=== PATIENT | female | born 1995 | race Hispanic/Latino ===

== ENCOUNTER 2021-12-23 20:29 | Emergency (ER) | payer OTHER, SELFPAY ==
[2021-12-23 20:30] VITALS: BP 136/90; PULSE 110; RESP 18; TEMP 36.6; O2SAT 98; BMI 30.2
--- NOTE | 2021-12-23 20:48 | ED.VIS.GI ---
HPI HPI - GI History of Present Illness Chief Complaint: Abd Pain Detail of Chief Complaint: Abdominal pain x3 days Informant: patient Narrative Narrative: Patient presents the emergency department complaint of abdominal pain for the last 3 days. Patient has had some mild nausea but no vomiting. She denies diarrhea. She denies blood in her stool or black tarry stool. Patient last menstrual period was the first week of November. She does not think she is . Patient tells me that in June of this year she had surgery to remove a dermoid cyst from her right ovary in [facility]. Patient states that pain feels similar to what she had at that time. Prior similar symptoms: Yes PFSH [facility] Medical History (Updated 12/23/21 @ 22:[address] Ventura Castaneda, DO) Ovarian cyst Ovarian teratoma Allergy/AdvReac Type Severity Reaction Status Date / Time No Known Allergies Allergy Verified 12/23/21 20:32 Social History Smoking Status: Never smoker ROS ROS ED Review of Systems ROS Unobtainable: other Constitutional Constitutional ED: Reports lethargy; Denies chills, fever(s), sweats or weight loss Eyes Eyes: Denies blurry vision, change in vision or diplopia ENT ENT ED: Denies rhinorrhea or sore throat Cardiovascular Cardiovascular: Denies chest pain, orthopnea or racing heartbeat Respiratory/Chest Respiratory/Chest: Denies cough, dyspnea, dyspnea on exertion, orthopnea or sputum Gastrointestinal Gastrointestinal: Reports abdominal pain and nausea; Denies diarrhea or vomiting Genitourinary Genitourinary ED: Denies dysuria, hematuria or urinary frequency Musculoskeletal Musculoskeletal: Denies arthralgias, back pain, myalgias or neck pain Integumentary Denies abscess, Abrasions or rash Neurologic Neurologic: Denies headache(s) or weakness Psychiatric Psychiatric: Denies anxiety, depression or suicidal thoughts Endocrine Endocrinology: Denies polydipsia, polyphagia or polyuria Hematologic/Lymphatic Hematologic/Lymphatic: Denies easy bleeding, easy bruising or lymphadenopathy Allergic/Immunologic Allergic/Immunologic ED: Denies mouth swelling, tongue swelling or urticaria EXAM Physical Exam Const Vital Signs: 12/23/21 20:30 12/23/21 22:30 Temperature 97.8 F Temperature Source Temporal Pulse Rate 110 H 68 Respiratory Rate 18 18 Blood Pressure 136/90 H Blood Pressure Mean 105 Pulse Ox 98 100 Oxygen Delivery Method Room Air Room Air Positive well nourished and well developed General Appearance ED: well developed and NAD HEENT Reports TM's clear and moist mucous membranes normocephalic and atraumatic; Negative for trauma or tenderness Tympanic Membrane ED: Yes TM's clear Eyes PERRL and EOMs intact bilaterally General Eye ED: Negative for pale conjunctiva or scleral icterus Neck no lymphadenopathy, supple and no JVD General: Negative for tenderness Chest Wall inspection of chest normal and palpation of chest normal Chest: Negative for tenderness Resp normal respiratory effort and clear to auscultation bilaterally Effort and Inspection: Negative for respiratory distress or pain with movement Auscultation: Negative for rhonchi, wheezes or diminished lung sounds Cardio regular rate, regular rhythm, S1 normal heart sound, S2 normal heart sound and no murmurs Peripheral Pulses: pulses 2+ throughout GI normal to inspection, nondistended, normoactive bowel sounds, soft to palpation, non-distended and no masses GI Narrative: Tenderness to right lower quadrant and suprapubic region with some mild guarding. There is no rebound, rigidity, or peritoneal signs. No masses palpated although exam somewhat limited due to patient body habitus. Back/Spine no CVA tenderness and no thoracic nor lumbar tenderness Extremity normal to inspection General Extremety ED: Negative for edema General Extremity: Negative for edema Neuro oriented x3, CN's II-XII intact bilaterally, no sensory deficits noted and gait normal Sensorium / Orientation: awake, alert, oriented to person, oriented to place and oriented to time Motor Exam: strength 5/5 throughout and strength abnormal Psych mental status grossly normal Skin no rashes or lesions noted and no wounds MDM MDM MDM Narrative Medical decision making narrative: IV line established on arrival. Patient did not want thing for pain. Blood work obtained was normal with a normal white count. Chemistries and LFTs were normal. Urinalysis was normal. hCG was negative. CT scan of the abdomen pelvis with IV and p.o. contrast interpreted by radiology as normal appendix and she did have small fluid about an irregularly shaped right ovary suspicious for ruptured ovarian cyst. On repeat evaluation patient is feeling well and does not want thing for pain. Patient will follow-up with her [employer] as she has an appointment on the 18th of next month. Patient advised to return if worsening pain, fever, vomiting, or condition worsen anyway. Lab Data Attestation: I reviewed the patient's lab results. Labs: Laboratory Results - last 24 hr 12/23/21 12/23/21 12/23/21 20:38 20:44 20:44 WBC 5.1 RBC 4.70 Hgb 14.2 Hct 41.9 MCV 89.1 MCH 30.2 MCHC 33.9 RDW Std Deviation 42.5 RDW Coeff of Karie 13.0 Plt Count 182 MPV 11.4 Immature Gran % (Auto) 0.200 Neut % (Auto) 47.4 Lymph % (Auto) 41.3 H [place] % (Auto) 9.9 Eos % (Auto) 0.6 Baso % (Auto) 0.6 Absolute Neuts (auto) 2.4 Absolute Lymphs (auto) 2.09 Nucleated RBC % 0 Sodium 139 Potassium 3.3 L Chloride 104 Carbon Dioxide 28.0 Anion Gap 7 BUN 12 Creatinine 0.93 Estim Creat Clear Calc 65.84 Est GFR (MDRD) Af Amer 94 Est GFR (MDRD) Non-Af 77 BUN/Creatinine Ratio 12.9 Glucose 99 Lactic Acid Calcium 9.6 Total Bilirubin 0.20 AST 36 ALT 52 Alkaline Phosphatase 67 Total Protein 8.4 H Albumin 4.0 Globulin 4.4 H Albumin/Globulin Ratio 0.9 Serum , Qual Urine Color Yellow Urine Clarity Clear Urine pH 6.0 Ur Specific [place] 1.015 Urine Protein Negative Urine Glucose (UA) Normal Urine Ketones 5 H Urine Occult Blood 10 H Urine Nitrite Negative Urine Bilirubin Negative Urine Urobilinogen Normal Ur Leukocyte Esterase Negative Urine RBC 0 SEEN Urine WBC 0 SEEN Ur Squamous Epith Cells 5-10 SEEN Urine Bacteria 2+ Urine Mucus 0 SEEN 12/23/21 12/23/21 20:44 20:44 WBC RBC Hgb Hct MCV MCH MCHC RDW Std Deviation RDW Coeff of Karie Plt Count MPV Immature Gran % (Auto) Neut % (Auto) Lymph % (Auto) [place] % (Auto) Eos % (Auto) Baso % (Auto) Absolute Neuts (auto) Absolute Lymphs (auto) Nucleated RBC % Sodium Potassium Chloride Carbon Dioxide Anion Gap BUN Creatinine Estim Creat Clear Calc Est GFR (MDRD) Af Amer Est GFR (MDRD) Non-Af BUN/Creatinine Ratio Glucose Lactic Acid 0.7 Calcium Total Bilirubin AST ALT Alkaline Phosphatase Total Protein Albumin Globulin Albumin/Globulin Ratio Serum , Qual NEGATIVE Urine Color Urine Clarity Urine pH Ur Specific [place] Urine Protein Urine Glucose (UA) Urine Ketones Urine Occult Blood Urine Nitrite Urine Bilirubin Urine Urobilinogen Ur Leukocyte Esterase Urine RBC Urine WBC Ur Squamous Epith Cells Urine Bacteria Urine Mucus Radiography Diagnostic Testing: Clinical Impression(s) from Imaging Studies Abdomen/Pelvis CT 12/23/21 22:15 IMPRESSION: Small fluid about an irregularly-shaped right ovary is suspicious for ruptured ovarian cyst. Electronically Signed: Zach Tan MD at 22:45 EDT , Discharge Plan Triage Chief Complaint: Abd Pain ED Provider: Ventura Castaneda Dx/Rx/DC Orders Clinical Impression: Abdominal pain, Ovarian cyst rupture Instructions: ED Abdominal Pain Unkn Cause Fem, ED Ovarian Cyst Primary Care Provider: Care Physician,No Primary Referrals: NOT,DEFINED [Non-Staff] - Activity Restrictions/Additional Instructions: Follow-up with your [employer] if continued pain or return to the emergency department. Disposition Disposition: Home, Self Care
[2021-12-23 21:02] LABS: Mucous, Urine 0 SEEN /hpf (<or=2+); Red Blood Cells-Urine 0 SEEN /hpf (0-5); White Blood Cells 0 SEEN /hpf (0-5)
[2021-12-23 21:09] LABS: Absolute Lymphocyte Count 2.09 X10^3/uL (0.83-4.51); Absolute Neutrophil Count 2.4 X10^3/uL (2.0-7.7); Basophil# 0.03 X10^3/uL; Basophil% 0.6 % (0-1); Eosinophil# 0.03 X10^3/uL; Eosinophils% 0.6 % (0-5); Hematocrit 41.9 % (37-47); Hemoglobin 14.2 g/dL (12.0-15.0); Lymphocyte # 2.09 X10^3/ul (0.83-4.51); Lymphocyte % 41.3 % (19-41); Mean Corp Hgb Conc 33.9 g/dL (32-36); Mean Corpuscular Hgb 30.2 pg (27.0-32.0); Mean Corpuscular Volume 89.1 fL (81-99); Mean Platelet Vol. 11.4 fl (6.2-12.0); Monocyte% 9.9 % (0-10); NRBC Flagged by Analyzer 0 % (0-5); Neutrophil % 47.4 % (47-70); Platelet Count 182 K/mm3 (150-450); RBC Distribution Width SD 42.5 fl (35.1-43.9); White Blood Count 5.1 K/mm3 (4.4-11.0)
[2021-12-23] MEDS: 0.9% Normal Saline 1,000 ML 125 ML IV (21:10)
[2021-12-23 21:18] LABS: Color, Urine Yellow (Yellow); Glucose, Dipstick Normal (Normal); Ketone-Dipstick 5 mg/dl (Negative); Leukocyte Esterase-Dipstick Negative /ul (Negative); Nitrite-Dipstick Negative (Negative); Occult Blood-Urine 10 /ul (Negative); Protein-Dipstick Negative (Negative); Specific Gravity, Urine 1.015 (1.002-1.030); Urine Bilirubin Dipstick Negative (Negative); Urine Clarity Clear (Clear); Urine Urobilinogen Normal (Normal)
[2021-12-23 21:24] LABS: ALB/GLOB Ratio 0.9 RATIO (0.9-2.4); AST(SGOT) 36 U/L (15-37); Alanine Aminotransfer ALT/SGPT 52 U/L (13-56); Alkaline Phosphatase 67 U/L (45-117); Anion Gap 7 (5-15); BUN 12 mg/dL (7-18); BUN/Creat Ratio 12.9 RATIO (10-20); Calcium,Total 9.6 mg/dL (8.5-10.1); Chloride 104 mmol/L (98-107); Creatinine, Serum 0.93 mg/dL (0.55-1.02); EST Glomerular Filtration Rate 77 mL/min (>60); Est Glom Filt Rate - Afr Amer 94 mL/min (>60); Estimated Creatinine Clearance 65.84 ml/min; Globulin 4.4 g/dL (2.2-4.2); Glucose 99 mg/dL (74-106); Potassium 3.3 mmol/L (3.5-5.1); Protein, Total 8.4 g/dL (6.4-8.2); Sodium Level 139 mmol/L (136-145)
[2021-12-23 21:31] LABS: Squamous Epithelial Cells - UA 5-10 SEEN /hpf (5-10)
[2021-12-23 21:32] LABS: Bacteria 2+ /hpf (None Seen)
[2021-12-23 21:39] LABS: Internal QC Validated? YES +Cl - CLEAR BKGD; Pregnancy, Serum, hCG Quali. NEGATIVE Negative
[2021-12-23 21:47] LABS: Lactic Acid 0.7 mmol/L (0.4-1.9)
--- NOTE | 2021-12-23 22:15 | CT_ITS ---
STUDY: CT ABDOMEN AND PELVIS WITH CONTRAST REASON FOR EXAM: Female, 26 years old. Abdominal pain -- IV PO Contrast RADIATION DOSAGE (If Supplied By Facility): CTDIvol = ( 14.21 ) mGy, DLP = ( 599.73 ) mGycm TECHNIQUE: Transaxial images were obtained from the dome of the diaphragm to the symphysis pubis without oral contrast. 100ML ISOVUE 370 AND ORAL GASTRO was administered. Sagittal and coronal images were reconstructed. Individualized dose optimization techniques were used for this CT. COMPARISON: None. FINDINGS: The visualized lung bases are unremarkable. The visualized portions of the heart are within normal limits. Normal liver. Normal gallbladder and extrahepatic biliary system. Normal spleen. Normal pancreas. Normal bilateral adrenal glands. Normal right kidney. Normal left kidney. Normal visualized stomach. Normal small intestine. Normal colon. The appendix is visualized and appears normal. Normal abdominal aorta. Normal inferior vena cava. Normal retroperitoneum. Normal urinary bladder. Normal visualized uterus. Small pelvic fluid about an irregularly-shaped right ovary. Normal abdominal wall. Normal thoracolumbar vertebral alignment. CT/Abdomen/Pelvis WITH Contrast IMPRESSION: Small fluid about an irregularly-shaped right ovary is suspicious for ruptured ovarian cyst. Electronically Signed: Zach Tan MD at 22:45 EDT ,
[2021-12-23 22:30] VITALS: PULSE 68; RESP 18; O2SAT 100
== END 2021-12-23 23:03 | disposition home or self-care (01) ==
PROVIDERS: Emergency Provider Emergency Medicine; Visit Provider Emergency Medicine
DX: N83.201 Unspecified ovarian cyst, right side (principal)
CPT/HCPCS: 74177; 80053; 81001; 83605; 84703; 85025; 96360; 96361; 99283; Q9967

== ENCOUNTER → 2023-05-23 | Outpatient (CLI) | payer OTHER, SELFPAY ==
--- OUTSIDE RECORDS SUMMARY | 2023-05-23 09:02 | XMS RPT_ITS | CCD ---
Author Name Unknown Address [address] [place] [address] Organization [facility] Care Team Providers Care Emergency Room Clinician Name Role Phone No, Physician Primary Care Provider Unavailabl e DANIEL NICHOLAS Attending Unavaila ble NO, PHYSICIAN Primary Care Unavailable NO, PHYSICIAN Primary Care Unavailable DANIEL NICHOLAS Consulting Unavaila ble DANIEL NICHOLAS Attending Unavaila ble DANIEL NICHOLAS Admitting Unavaila ble NO, PHYSICIAN Primary Care Unavailable SANDY POZO Attending Unavailable NO, PHYSICIAN Primary Care Unavailable AYDIN MALDONADO Attending Unavailabl e NO, PHYSICIAN Primary Care Unavailable NATHAN FORDE Attending [place] VER[place], PHYSICIAN Primary Care Unavailable NATHAN FORDE Attending BERNADINE Kaur Attending Unavailable Dusty'EPIERIC SANDERS Primary Care Unavailable SHERI YANG Referring Unavailable DENY SALDANA Attending Unavailable Dusty'EPIERIC SANDERS F Primary Care Unavailable Genet RENNER Attending Unavailable ZURDO ECristofer C Referring Unavailable Dusty'ERIC DESAI Referring Unavailable Genet RENNER C Attending Unavailable Dusty'EPIERIC SANDERS Primary Care Unavailable HEIDI SESAY Attending Unavailabl e HEIDI SESAY Referring Unavailabl e NO, PHYSICIAN Primary Care Unavailable NO, PHYSICIAN Primary Care Unavailable ALLEN MELGAR Admitting Unavailable ALLEN MELGAR Attending Unavailable NO, PHYSICIAN Primary Care Unavailable Unavailable Primary Care Provider Unavailabl e Unavailable Primary Care Provider Unavailabl e Unavailable Primary Care Provider Unavailabl e FLORY DAYAN C Primary Care Unavailable FLORY DAYAN C Attending Unavailable DAYAN RUTH C Admitting Unavailable FLORY DAYAN C Attending Unavailable FLORY DAYAN C Admitting Unavailable RUTH DAYAN C Primary Care Unavailable FLORY DAYAN C Attending Unavailable FLORY DAYAN C Admitting Unavailable RUTH DAYAN C Primary Care Unavailable LIZARRAGA, STEPHANIE MD Admitting Unavailable STEPHANIE LIZARRAGA MD Primary Care Unavailable STEPHANIE LIZARRAGA MD Attending Unavailable ALEJANDRA KLINE Attending Unavailable ALISSA CANTU Attending Unavailable TIFFANYSDEAN, JAMIA Referring Unavailable LISSY BOOGIE ALISSA Attending Unavailable STRASBURG, JAMIA Referring Unavailable ALISSA CANTU Attending Unavailable TIFFANYSBURG, JAMIA Referring Unavailable ALISSA CANTU Attending Unavailable TIFFANYSDEAN, JAMIA Referring Unavailable ALISSA CANTU Attending Unavailable TIFFANYSDEAN, JAMIA Referring Unavailable ARON GASTON Referring Unavailable ARON GASTON Referring Unavailable ARON GASTON Attending Unavailable JAMIA CASTELLANOS Attending Unavailable ALEJANDRA KLINE Referring Unavailable Medications Current Medications Medication Drug Class(es) Dates Sig (Normalized) Sig (Original) acetaminophen 325 mg / oxyCODONE hydrochloride 5 mg oral tablet (2 sources) Opioid Agonist Start: 11-25-2018 End: 11-30-2018 take 1 tablet by mouth every six hours as needed for pain oxyCODONE-acetami nophen (PERCOCET) 5-325 mg per tablet Indications: Pelvic pain in female Take 1 (one) tablet by mouth every 6 (six) hours as needed for pain . 16 tablet 0 11/25/2018 11/30/2018 Active amoxicillin 500 mg oral capsule (1 source) Penicillin-class Antibacterial Start: 05-27-2022 End: 06-06-2022 take 1 capsule by mouth twice daily amoxicillin (POLYMOX, AMOXIL) 500 mg capsule Indications: Strep throat Take 1 capsule by mouth twice daily for 10 days. 20 capsule 0 05/27/2022 06/06/2022 Active Completed/Discontinued Medications Medication Drug Class(es) Dates Sig (Normalized) Sig (Original) acetaminophen 500 mg oral tablet (2 sources) Start: 12-21-2021 End: 12-21-2021 acetaminophen 1,000 mg tab(s) (TYLENOL) Problems Active Problems Problem Classification Problem Date Documented Da te Episodic/Chronic Acute and chronic tonsillitis (1 source) Hypertrophy of tonsils; Translations: [Hypertrophy of tonsils] 11-16-2022 Chronic Acute and chronic tonsillitis (1 source) Tonsillitis; Translations: [Tonsillitis] Episodic Contraceptive and procreative management (2 sources) Patient encounter status; Translations: [Encounter for other general counseling and advice on contraception] Episodic Fever of unknown origin (1 source) Fever; Translations: [Fever, unspecified] Episodic Genitourinary symptoms and ill-defined conditions (1 source) Increased frequency of urination; Translations: [Frequency of micturition] 11-03-2022 Episodic Inflammation; infection of eye (except that caused by tuberculosis or sexually transmitteddisease) (1 source) Bacterial conjunctivitis; Translations: [Acute bacterial conjunctivitis of left eye] Episodic Malaise and fatigue (3 sources) Fatigue; Translations: [Other fatigue] Onset: 11-17-2022 11-16-2022 Episodic Menstrual disorders (1 source) Missed period; Translations: [Irregular menstruation, unspecified] Chronic Noninfectious gastroenteritis (1 source) Chronic diarrhea; Translations: [Noninfective gastroenteritis and colitis, unspecified] 11-16-2022 Episodic Other circulatory disease (1 source) Elevated blood pressure; Translations: [Elevated blood pressure reading] Episodic Other connective tissue disease (1 source) Muscle pain; Translations: [Myalgia, unspecified site] 11-16-2022 Episodic Other connective tissue disease (1 source) Myalgia, unspecified site; Translations: [Myalgia] Onset: 11-17-2022 Episodic Other female genital disorders (18 sources) Pain in female genitalia on intercourse; Translations: [Unspecified dyspareunia] Onset: 04-09-2022 Chronic Other female genital disorders (1 source) Unspecified dyspareunia; Translations: [Dyspareunia, female] Onset: 04-09-2022 Chronic Other female genital disorders (4 sources) Torsion of ovary; Translations: [Ovarian torsion] Onset: 11-25-2018 11-25-2018 Episodic Other female genital disorders (1 source) History of gynecological disorder; Translations: [Personal history of other diseases of the female genital tract] Episodic Other gastrointestinal disorders (1 source) Hemorrhagic diarrhea ; Translations: [Diarrhea, unspecified] Episodic Other lower respiratory disease (1 source) Cough; Translations: [Cough] Episodic Other upper respiratory disease (1 source) Pain in throat; Translations: [Pain in throat] Episodic Other upper respiratory infections (5 sources) Viral pharyngitis; Translations: [Sore throat symptom] Episodic Residual codes; unclassified (1 source) H/O: surgery; Translations: [Postop check] Episodic Spondylosis; intervertebral disc disorders; other back problems (2 sources) Acute back pain with sciatica; Translations: [Acute low back pain] Episodic Unclassified (1 source) Acute midline low back pain without sciatica; Translations: [Acute midline low back pain without sciatica] Onset: 02-23-2022 Viral infection (1 source) Viral disease; Translations: [Viral infection, unspecified] Episodic Past or Other Problems Problem Classification Problem Date Documented Da te Episodic/Chronic Abdominal pain (5 sources) Left lower quadrant pain; Translations: [Pain in female pelvis] Onset: 02-23-2022 Episodic Cancer of ovary (1 source) Germ cell tumor of ovary; 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, left] Episodic Other and unspecified benign neoplasm (1 source) Benign neoplasm of ovary; 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] Episodic Other female genital disorders (17 sources) Pelvic floor dysfunction; Translations: [Other specified conditions associated with female genital organs and menstrual cycle] Onset: 04-09-2022 Episodic Other female genital disorders (1 source) Other specified conditions associated with female genital organs and menstrual cycle; Translations: [High-tone pelvic floor dysfunction] Onset: 04-09-2022 Episodic Results Test Name Value Interpretation Reference Range Facil ity Vital Signs Date Time Vital Sign Value Performing Clinician Anselmo wong 11-16-2022 12:42-0400 Body height 153.7 cm Aron Gaston [employer] Work Phone: [facility] 11-16-2022 12:42-0400 Body temperature 98.4 [degF] Aron Gaston DO Work Phone: [facility] 11-16-2022 12:42-0400 Body weight 70.4 kg Aron Gaston [employer] Work Phone: [facility] 11-16-2022 12:42-0400 Diastolic blood pressure 82 mm[Hg] Aron Gaston DO Work Phone: [facility] 11-16-2022 12:42-0400 Heart rate 86 /min Aron Gaston [employer] Work Phone: [facility] 11-16-2022 12:42-0400 Systolic blood pressure 116 mm[Hg] Aron Gaston DO Work Phone: [facility] 11-03-2022 16:54-0400 Body temperature 99.1 [degF] [facility] CLAIM REPRESENTATIVE.[employer]IONAL CHILDREN'S TE[employer]ER Work Phone: [facility] 11-03-2022 16:54-0400 Body weight 70.76 kg [facility] AUTO CLAIM REPRESENTATIVE.EXCEPT[employer] CHILDREN'[employer] TE[employer]ER Work Phone: [facility] 11-03-2022 16:54-0400 Diastolic blood pressure 82 mm[Hg] [facility] AUTO CLAIM REPRESENTATIVE.EXCEPT[employer] CHILDREN'[employer] TE[employer]ER Work Phone: [facility] 11-03-2022 16:54-0400 Heart rate 82 /min Vicdariela Bernardandreia AUTO CLAIM REPRESENTATIVE.EXCEPT[employer] CHILDREN'[employer] TE[employer]ER Work Phone: [facility] 11-03-2022 16:54-0400 Respiratory rate 16 /min Vic Pendgerardoandreia AUTO CLAIM REPRESENTATIVE.EXCEPT[employer] CHILDREN'[employer] TE[employer]ER Work Phone: [facility] 11-03-2022 16:54-0400 SaO2% (BldA) [Mass fraction] 98 % [facility] AUTO CLAIM REPRESENTATIVE.EXCEPTIONAL CHILDREN'[employer] TE[employer]ER Work Phone: [facility] 11-03-2022 16:54-0400 Systolic blood pressure 128 mm[Hg] Vic Bernardandreia AUTO CLAIM REPRESENTATIVE.[employer] CHILDREN'[employer] TE[employer]ER Work Phone: [facility] 07-30-2022 09:01-0400 Body temperature 97.7 [degF] Rebeca Lisa AUTO CLAIM REPRESENTATIVE.[employer] CHILDREN'[employer] TE[employer]ER Work Phone: [facility] 07-30-2022 09:01-0400 Body weight 68.95 kg Rebeca Lisa AUTO CLAIM REPRESENTATIVE.EXCEPT[employer] CHILDREN'[employer] TE[employer]ER Work Phone: [facility] 07-30-2022 09:01-0400 Diastolic blood pressure 64 mm[Hg] Rebeca Lisa AUTO CLAIM REPRESENTATIVE.EXCEPT[employer] CHILDREN'[employer] TE[employer]ER Work Phone: [facility] 07-30-2022 09:01-0400 Heart rate 88 /min Rebeca Lisa AUTO CLAIM REPRESENTATIVE.[employer] CHILDR[employer] TE[employer]ER Work Phone: [facility] 07-30-2022 09:01-0400 Respiratory rate 20 /min Rebeca Lisa AUTO CLAIM REPRESENTATIVE.EXCEPT[employer] CHILDREN'[employer] TE[employer]ER Work Phone: [facility] 07-30-2022 09:01-0400 SaO2% (BldA) [Mass fraction] 98 % Rebeca Lisa AUTO CLAIM REPRESENTATIVE.EXCEPTIONAL CHILDREN'S TEACHER Work Phone: [facility] 07-30-2022 09:01-0400 Systolic blood pressure 108 mm[Hg] Rebeca Lisa AUTO CLAIM REPRESENTATIVE.EXCEPTIONAL CHILDREN'S TEACHER Work Phone: [facility] 05-27-2022 09:34-0500 Body temperature 98.8 [degF] Gio Cade AUTO CLAIM REPRESENTATIVE.EXCEPT[employer] CHILDREN'[employer] TEACHER Work Phone: [facility] 05-27-2022 09:34-0500 Body weight 69.04 kg Gio Cade AUTO CLAIM REPRESENTATIVE.EXCEPT[employer] CHILDREN'[employer] TEACHER Work Phone: [facility] 05-27-2022 09:34-0500 Diastolic blood pressure 60 mm[Hg] Gio Cade AUTO CLAIM REPRESENTATIVE.EXCEPT[employer]AL CHILDREN'[employer] TEACHER Work Phone: [facility] 05-27-2022 09:34-0500 Heart rate 92 /min Gio Cade AUTO CLAIM REPRESENTATIVE.EXCEPT[employer] CHILDREN'[employer] TE[employer]ER Work Phone: [facility] 05-27-2022 09:34-0500 Respiratory rate 16 /min Gio Cade AUTO CLAIM REPRESENTATIVE.EXCEPTIONAL CHILDREN'[employer] TEACHER Work Phone: [facility] 05-27-2022 09:34-0500 SaO2% (BldA) [Mass fraction] 98 % Gio Cade AUTO CLAIM REPRESENTATIVE.EXCEPTIONAL CHILDREN'S TEACHER Work Phone: [facility] 05-27-2022 09:34-0500 Systolic blood pressure 128 mm[Hg] Gio Cade AUTO CLAIM REPRESENTATIVE.EXCEPT[employer]AL CHILDREN'[employer] TEACHER Work Phone: [facility] 04-09-2022 10:00-0500 Diastolic blood pressure 82 mm[Hg] Alissa Miller PT Work Phone: [facility] 04-09-2022 10:00-0500 Systolic blood pressure 114 mm[Hg] Alissa Miller PT Work Phone: [facility] 01-05-2022 15:28-0400 Body height 155.5 cm Alejandra Kline MD Work Phone: [facility] 01-05-2022 15:28-0400 Body weight 68.86 kg Alejandra Kline MD Work Phone: [facility] 01-05-2022 15:28-0400 Diastolic blood pressure 62 mm[Hg] Alejandra Kline MD Work Phone: [facility] 01-05-2022 15:28-0400 Systolic blood pressure 106 mm[Hg] Alejandra Kline MD Work Phone: [facility] 12-21-2021 09:04-0400 Body temperature 101.7 [degF] Jamia Marie AUTO CLAIM REPRESENTATIVE.EXCEPT[employer] CHILDREN'[employer] TEACHER Work Phone: [facility] 12-21-2021 09:04-0400 Body weight 70.4 kg Jamia Marie AUTO CLAIM REPRESENTATIVE.EXCEPTIONAL CHILDREN'S TEACHER Work Phone: [facility] 12-21-2021 09:04-0400 Diastolic blood pressure 86 mm[Hg] Jamia Marie AUTO CLAIM REPRESENTATIVE.EXCEPTIONAL CHILDREN'S TEACHER Work Phone: [facility] 12-21-2021 09:04-0400 Heart rate 137 /min Jamia Marie AUTO CLAIM REPRESENTATIVE.EXCEPTION[employer] CHILDREN'S TEACHER Work Phone: [facility] 12-21-2021 09:04-0400 Respiratory rate 18 /min Jamia Marie AUTO CLAIM REPRESENTATIVE.EXCEPTIONAL CHILDREN'S TEACHER Work Phone: [facility] 12-21-2021 09:04-0400 SaO2% (BldA) [Mass fraction] 98 % Jamia Marie AUTO CLAIM REPRESENTATIVE.EXCEPTIONAL CHILDREN'S TEACHER Work Phone: [facility] 12-21-2021 09:04-0400 Systolic blood pressure 124 mm[Hg] Jamia Marie AUTO CLAIM REPRESENTATIVE.EXCEPT[employer] CHILDREN'S TEACHER Work Phone: [facility] 10-06-2021 13:58-0400 Body height 152.4 cm Alejandra Kline MD Work Phone: [facility] 10-06-2021 13:58-0400 Body weight 69.4 kg Alejandra Kline MD Work Phone: [facility] 10-06-2021 13:58-0400 Diastolic blood pressure 74 mm[Hg] Alejandra Kline MD Work Phone: [facility] 10-06-2021 13:58-0400 Systolic blood pressure 110 mm[Hg] Alejandra Kline MD Work Phone: [facility] 08-27-2021 09:35-0400 Body temperature 98.01 [degF] Gio Cade AUTO CLAIM REPRESENTATIVE.EXCEPTIONAL CHILDREN'S TEACHER Work Phone: [facility] 08-27-2021 09:35-0400 Body weight 69.58 kg Gio Cade AUTO CLAIM REPRESENTATIVE.EXCEPTIONAL CHILDREN'S TEACHER Work Phone: [facility] 08-27-2021 09:35-0400 Diastolic blood pressure 80 mm[Hg] Gio Cade AUTO CLAIM REPRESENTATIVE.EXCEPTIONAL CHILDREN'S TEACHER Work Phone: [facility] 08-27-2021 09:35-0400 Heart rate 91 /min Gio Cade AUTO CLAIM REPRESENTATIVE.EXCEPTIONAL CHILDREN'S TEACHER Work Phone: [facility] 08-27-2021 09:35-0400 Respiratory rate 19 /min Gio Cade AUTO CLAIM REPRESENTATIVE.EXCEPTIONAL CHILDREN'S TEACHER Work Phone: [facility] 08-27-2021 09:35-0400 SaO2% (BldA) [Mass fraction] 95 % Gio Cade AUTO CLAIM REPRESENTATIVE.EXCEPTIONAL CHILDREN'S TEACHER Work Phone: [facility] 08-27-2021 09:35-0400 Systolic blood pressure 102 mm[Hg] Gio Cade AUTO CLAIM REPRESENTATIVE.EXCEPTIONAL CHILDREN'S TEACHER Work Phone: [facility] 01-01-2019 09:17-0400 BMI (Body Mass Index) 31.25 kg/m2 Nathan Wang [facility] 01-01-2019 09:17-0400 Body Temperature 98.49 [degF] Nathan Wang [facility] 01-01-2019 09:17-0400 Body weight 72.58 kg Nathan Forde [facility] 01-01-2019 09:17-0400 BP Diastolic 74 mm[Hg] Nathan Forde [facility] 01-01-2019 09:17-0400 BP Systolic 122 mm[Hg] Nathan Forde [facility] 01-01-2019 09:17-0400 Pulse (Heart Rate) 94 /min Nathan Forde [facility] 01-01-2019 09:17-0400 Pulse Oximetry 97 % Nathan Forde [facility] 01-01-2019 09:17-0400 Respiratory Rate 16 /min Nathan Forde [facility] 12-01-2018 09:00-0400 BMI (Body Mass Index) 30.47 kg/m2 [facility] 12-01-2018 09:00-0400 Body Temperature 98.01 [degF] [facility] 12-01-2018 09:00-0400 Body weight 70.76 kg [facility] 12-01-2018 09:00-0400 BP Diastolic 78 mm[Hg] [facility] 12-01-2018 09:00-0400 BP Systolic 119 mm[Hg] [facility] 12-01-2018 09:00-0400 Pulse (Heart Rate) 71 /min [facility] 11-25-2018 15:20-0400 Body Temperature 97.81 [degF] [facility] 11-25-2018 15:20-0400 BP Diastolic 82 mm[Hg] [facility] 11-25-2018 15:20-0400 BP Systolic 122 mm[Hg] [facility] 11-25-2018 15:20-0400 Pulse (Heart Rate) 103 /min [facility] 11-25-2018 15:20-0400 Pulse Oximetry 96 % [facility] 11-25-2018 15:20-0400 Respiratory Rate 12 /min [facility] 11-25-2018 05:05-0400 BMI (Body Mass Index) 33.67 kg/m2 [facility] 11-25-2018 05:05-0400 Body weight 78.2 kg [facility] 11-25-2018 05:05-0400 Height 152.4 cm [facility] 11-20-2018 00:01-0400 BP Diastolic 74 mm[Hg] [facility] 11-20-2018 00:01-0400 BP Systolic 124 mm[Hg] [facility] 11-20-2018 00:01-0400 Pulse Oximetry 98 % [facility] 11-19-2018 20:50-0400 BMI (Body Mass Index) 31.25 kg/m2 [facility] 11-19-2018 20:50-0400 Body Temperature 99.61 [degF] [facility] 11-19-2018 20:50-0400 Body weight 72.58 kg [facility] 11-19-2018 20:50-0400 Height 152.4 cm [facility] 11-19-2018 20:50-0400 Pulse (Heart Rate) 87 /min Trevahoracio Moser [facility] 11-19-2018 20:12-0400 BMI (Body Mass Index) 31.44 kg/m2 Nathan Forde [facility] 11-19-2018 20:12-0400 Body Temperature 100.4 [degF] Nathan Forde [facility] 11-19-2018 20:12-0400 Body weight 73.03 kg Nathan Forde [facility] 11-19-2018 20:12-0400 BP Diastolic 79 mm[Hg] Nathan Forde [facility] 11-19-2018 20:12-0400 BP Systolic 124 mm[Hg] Nathan Forde [facility] 11-19-2018 20:12-0400 Pulse (Heart Rate) 98 /min Nathan Forde [facility] 11-19-2018 20:12-0400 Pulse Oximetry 96 % Nathan Forde [facility] 11-19-2018 20:12-0400 Respiratory Rate 16 /min Nathan Forde [facility] 09-25-2018 11:50-0400 BMI (Body Mass Index) 30.47 kg/m2 [facility] 09-25-2018 11:50-0400 Body Temperature 98.6 [degF] [facility] 09-25-2018 11:50-0400 Body weight 70.76 kg [facility] 09-25-2018 11:50-0400 BP Diastolic 82 mm[Hg] [facility] 09-25-2018 11:50-0400 BP Systolic 124 mm[Hg] [facility] 09-25-2018 11:50-0400 Height 152.4 cm [facility] 09-25-2018 11:50-0400 Pulse (Heart Rate) 81 /min Aydin Maldonado [facility] 09-25-2018 11:50-0400 Pulse Oximetry 96 % Aydin Maldonado [facility] 09-25-2018 11:50-0400 Respiratory Rate 16 /min Aydin Maldonado [facility] 07-02-2018 09:36-0400 BP Diastolic 86 mm[Hg] Sandy Pozo [facility] 07-02-2018 09:36-0400 BP Systolic 120 mm[Hg] Sandy Pozo [facility] 07-02-2018 09:19-0400 Body Temperature 98.4 [degF] Sandy Pozo [facility] 07-02-2018 09:19-0400 Pulse (Heart Rate) 102 /min Sandy Pozo [facility] 07-02-2018 09:19-0400 Pulse Oximetry 96 % Sandy Pozo [facility] 07-02-2018 09:19-0400 Weight 72.58 kg Sandy Pozo [facility] Encounters Encounter Date Encounter Type Care Provider Facility Start: 11-17-2022 End: 11-18-2022 ambulatory ARON GASTON Facility:[facility] Start: 11-17-2022 Encounter for genera l adult medical examination without abnormal findings MEMOCATHY ELIUD [facility] Start: 11-16-2022 End: 11-16-2022 ambulatory ARON GASTON Facility:[facility] Start: 11-16-2022 Telephone encounter Aron Becker DO Work Phone: Family Medicine Procedures Date Procedure Procedure Detail Performing Clinician Start: 11-03-2022 Urnls dip stick/tabl et rgnt auto w/o microscopy Nurys Velasquez AUTO CLAIM REPRESENTATIVE.[employer] CHILDREN'[employer] TEACHER Work Phone: Start: 07-28-2022 Urinalysis DAYAN RUTH Plan of Treatment Date Care Activity Detail Author Start: 01-05-2025 PAP TESTING PAP TESTING [facility] Start: 11-26-2022 Influenza vaccination C [facility] Start: 11-16-2022 End: 01-16-2023 KATHERINE BY IFA WITH REFLEX KATHERINE BY IFA WITH REFLEX Lab Routine Myalgia Expected: 11/16/2022, Expires: 01/16/2023 [facility] Work Phone: Payers Date Payer Category Payer Unknown [id number] 2022 Medicaid [employer] [id number] 2022-Present [phone] [address] [place] [address] Medicaid [id number] 2022 Unknown [id number] 2021 Unknown MMO MMO [employer] [id number] 2021-Present [phone] [address] [place] [address] PPO [id number] 2021 Unknown [id number] 2021 Unknown [id number] 2021 Private Health Insurance [id number] 2020 Medicaid [id number] 2020 Unknown [id number] 2018 Unknown [id number] 2018 Unknown ANTHEM BCBS OUT OF STATE [facility] xxxxxxxxxxxx 2018-Present xxxxxxxxxxxx [id number] 1995 Unknown [id number] .[id number] .903 1995 Unknown [id number] .[id number] .902 1995 Unknown [id number] 2.16.840.1.002653.3.579.2 .903 1995 Unknown [id number] 2.16.840.1.848992.3.579.2 .903 1995 Unknown [id number] 2.16.840.1.228810.3.579.2 .903 1995 Unknown [id number] 2.16.840.1.094484.3.579.2 .903 1995 Unknown [id number] 2.16.840.1.270485.3.579.2 .594 1995 Unknown [id number] 2.16.840.1.656538.3.579.2 .594 1995 Unknown [id number] 2.16.840.1.216033.3.579.2 .594 1995 Unknown [id number] 2.16.840.1.683871.3.579.2 .902 1995 Unknown [id number] 2.16.840.1.652946.3.579.2 .900 1995 Unknown [id number] 2.16.840.1.437186.3.579.2 .900 1995 Unknown [id number] 2.16.840.1.605311.3.579.2 .651 1995 Unknown [id number] 2.16.840.1.197941.3.579.2 .651 1995 Unknown [id number] 2.16.840.1.337697.3.579.2 .651 1995 Unknown [id number] 2.16.840.1.496810.3.579.2 .651 Unknown [facility] [employer] xxxxxxxxx Effective for all dates xxxxxxxxx [id number] Unknown [id number] Social History Date Type Detail Facility Start: 07-02-2018 End: 12-21-2021 Tobacco smoking status TXIS Never smoker [facility] Start: 1995 Sex Assigned At Not on file [facility] Start: 11-19-2018 End: 11-16-2022 Alcohol intake Current drinker of alcohol (finding) [facility] Start: 11-19-2018 Alcohol Comment occasional [facility] Start: 08-27-2021 End: 12-21-2021 Tobacco use and exposure Smokeless tobacco non-user [facility] Start: 08-17-2021 End: 02-23-2022 Exposure to SARS-CoV-2 (event) Not sure [facility] Work Phone: Start: 09-07-2022 History SDOH Alcohol Frequency 3 [facility] Start: 09-07-2022 History SDOH Alcohol Std Drinks 4 [facility] Start: 09-07-2022 History SDOH Social Connections Get Together 2 [facility] Start: 09-07-2022 History SDOH Social Connections Nondenominational 1 [facility] Start: 09-07-2022 History SDOH Social Connections Living 8 [facility] Start: 09-07-2022 History SDOH Physical Activity DPW 6 [facility] Start: 09-07-2022 History SDOH Financial 5 [facility] Start: 09-07-2022 End: 11-16-2022 History of Social function [facility] Start: 09-07-2022 End: 11-16-2022 Social connection and isolation panel [facility] Do you belong to any clubs or organizations such as restoration groups, unions, fraternal or athletic groups, or school groups? No [facility] Are you now , , , , never or living with a partner? Living with partner [facility] How often to you hav e a drink containing alcohol? 2-4 times a month [facility] How many standard dr inks containing alcohol do you have on a typical day? 7 to 9 [facility] How often do you hav e 6 or more drinks on 1 occasion? Monthly [facility] How hard is it for y ou to pay for the very basics like food, housing, medical care, and heating Not hard at all [facility] Do you feel stress - tense, restless, nervous, or anxious, or unable to sleep at night because your mind is troubled all the time - these days [OSQ] Rather much [facility] (I/We) worried ishan er (my/our) food would run out before (I/we) got money to buy more. Never true [facility] Start: 11-16-2022 Alcohol Comment socially [facility] Clinical Notes 08-27-2021 to 11-16-2022 Telephone Encounter - Tram Higgins - 11/16/2022 1:20 PM EDTAron Gaston DO - 11/16/2022 12:54 PM EDTTelephone Encounter - Nataly Merino RN - 11/05/2022 4:34 PM EDT Note Date & Type Note Facility 11-16-2022 Note HNO ID: [id number] Author: Aron Gaston DO Service: ? Author Type: Physician Type: Progress Notes Filed: 11/16/2022 3:29 PM Note Text: Establish Care Throat Problem (Patient states tonsils are swollen) The history is provided by the patient. No sign language teacher was used. HISTORY REVIEWED PAST MEDICAL HISTORY Diagnosis Date Dermoid cyst Migraine without aura PAST SURGICAL HISTORY Procedure Laterality Date OVARIAN CYSTECTOMY Bilateral 2021 right and left dermoid cyst removals OVARIAN CYSTECTOMY Left 10/2018 left ov cystectomy, [place] FAMILY HISTORY Adopted: Yes Social History Social History Narrative Not on file Allergies: ALLERGIES No Known Allergies Medications: cephALEXin (KEFLEX) 500 mg capsule Take 500 mg by mouth. (Patient not taking: Reported on 11/03/2022) ondansetron (ZOFRAN) 4 mg tablet Take 4 mg by mouth every 6 hours as needed. (Patient not taking: Reported on 11/16/2022) folic acid 1 mg tablet Take 1 tablet by mouth once daily. (Patient not taking: Reported on 11/16/2022) Problem List: ACTIVE PROBLEM LIST Dyspareunia, Female - 04/09/2022 High-Tone Pelvic Floor Dysfunction - 04/09/2022 Review of Systems HENT: Positive for sore throat. All other systems reviewed and are negative. Physical Exam Vitals and nursing note reviewed. Constitutional: Appearance: Normal appearance. She is well-developed and normal weight. HENT: Head: Normocephalic and atraumatic. Right Ear: Tympanic membrane, ear canal and external ear normal. Left Ear: Tympanic membrane, ear canal and external ear normal. Nose: Nose normal. No congestion. Mouth/Throat: Mouth: Mucous membranes are moist. Pharynx: Oropharyngeal exudate and posterior oropharyngeal erythema present. Comments: Tonsils 2 plus Eyes: Conjunctiva/sclera: Conjunctivae normal. Pupils: Pupils are equal, round, and reactive to light. Cardiovascular: Rate and Rhythm: Normal rate and regular rhythm. Heart sounds: Normal heart sounds. No murmur heard. Pulmonary: Effort: Pulmonary effort is normal. No respiratory distress. Breath sounds: Normal breath sounds. No wheezing or rales. Chest: Chest wall: No tenderness. Abdominal: General: Bowel sounds are normal. Palpations: Abdomen is soft. Tenderness: There is no guarding or rebound. Musculoskeletal: General: No swelling or tenderness. Normal range of motion. Cervical back: Normal range of motion and neck supple. Lymphadenopathy: Cervical: No cervical adenopathy. Skin: General: Skin is warm and dry. Capillary Refill: Capillary refill takes less than 2 seconds. Findings: No erythema or rash. Neurological: General: No focal deficit present. Mental Status: She is alert and oriented to person, place, and time. Mental status is at baseline. Psychiatric: Mood and Affect: Mood normal. Behavior: Behavior normal. Thought Content: Thought content normal. Judgment: Judgment normal. Comments: No suicidal or homicidal ideation BP 116/82 Pulse 86 Temp 36.9 ?C (98.4 ?F) (Tympanic) Ht 153.7 cm (5' 0.5 ) Wt 70.4 kg (155 lb 3.2 oz) LMP 11/05/2022 (Within Days) BMI 29.81 kg/m? ASSESSMENT/PLAN: 1. Well adult exam - ICD9: V70.0, ICD10: Z00.00 (primary diagnosis) - Counseled on healthy diet and regular exercise - Calcium intake with supplements or by diet of 1000 mg/day for under 50, 7055-4271 mg/day for 50+ - CBC + DIFF - COMP METABOLIC PANEL 2. Pharyngitis, unspecified etiology - ICD9: 462, ICD10: J02.9 - suspect strep 3. Fatigue, unspecified type - ICD9: 780.79, ICD10: R53.83 - TSH BLD - T4 FREE/FREE THYROX - T3 FREE BLD 4. Chronic diarrhea - ICD9: 787.91, ICD10: K52.9 - CONSULT TO GASTROENTEROLOGY 5. Myalgia - ICD9: 729.1, ICD10: M79.10 - KATHERINE BY IFA WITH REFLEX - RHEUMATOID FACTOR BL - SED RATE [facility] 6. Tonsillar hypertrophy - ICD9: 474.11, ICD10: J35.1 - CONSULT TO ENT - AMOXICILLIN 875 MG-POTASSIUM CLAVULANATE 125 MG TABLET Aron Gaston DO [facility] 11-16-2022 Miscellaneous Notes Please schedule gastro and ENT once referrals are approved. She has [employer] insurance. documented in this encounter [facility] 11-16-2022 History of Presen t illness Narrative Establish Care Throat Problem (Patient states tonsils are swollen) The history is provided by the patient. No sign language teacher was used. HISTORY REVIEWED PAST MEDICAL HISTORY Diagnosis Date Dermoid cyst Migraine without aura PAST SURGICAL HISTORY Procedure Laterality Date OVARIAN CYSTECTOMY Bilateral 2021 right and left dermoid cyst removals OVARIAN CYSTECTOMY Left 10/2018 left ov cystectomy, [place] FAMILY HISTORY Adopted: Yes Social History Social History Narrative Not on file Allergies: ALLERGIES No Known Allergies Medications: cephALEXin (KEFLEX) 500 mg capsule Take 500 mg by mouth. (Patient not taking: Reported on 11/03/2022) ondansetron (ZOFRAN) 4 mg tablet Take 4 mg by mouth every 6 hours as needed. (Patient not taking: Reported on 11/16/2022) folic acid 1 mg tablet Take 1 tablet by mouth once daily. (Patient not taking: Reported on 11/16/2022) Problem List: ACTIVE PROBLEM LIST Dyspareunia, Female - 04/09/2022 High-Tone Pelvic Floor Dysfunction - 04/09/2022 Review of Systems HENT: Positive for sore throat. All other systems reviewed and are negative. Physical Exam Vitals and nursing note reviewed. Constitutional: Appearance: Normal appearance. She is well-developed and normal weight. HENT: Head: Normocephalic and atraumatic. Right Ear: Tympanic membrane, ear canal and external ear normal. Left Ear: Tympanic membrane, ear canal and external ear normal. Nose: Nose normal. No congestion. Mouth/Throat: Mouth: Mucous membranes are moist. Pharynx: Oropharyngeal exudate and posterior oropharyngeal erythema present. Comments: Tonsils 2 plus Eyes: Conjunctiva/sclera: Conjunctivae normal. Pupils: Pupils are equal, round, and reactive to light. Cardiovascular: Rate and Rhythm: Normal rate and regular rhythm. Heart sounds: Normal heart sounds. No murmur heard. Pulmonary: Effort: Pulmonary effort is normal. No respiratory distress. Breath sounds: Normal breath sounds. No wheezing or rales. Chest: Chest wall: No tenderness. Abdominal: General: Bowel sounds are normal. Palpations: Abdomen is soft. Tenderness: There is no guarding or rebound. Musculoskeletal: General: No swelling or tenderness. Normal range of motion. Cervical back: Normal range of motion and neck supple. Lymphadenopathy: Cervical: No cervical adenopathy. Skin: General: Skin is warm and dry. Capillary Refill: Capillary refill takes less than 2 seconds. Findings: No erythema or rash. Neurological: General: No focal deficit present. Mental Status: She is alert and oriented to person, place, and time. Mental status is at baseline. Psychiatric: Mood and Affect: Mood normal. Behavior: Behavior normal. Thought Content: Thought content normal. Judgment: Judgment normal. Comments: No suicidal or homicidal ideation BP 116/82 Pulse 86 Temp 36.9 C (98.4 F) (Tympanic) Ht 153.7 cm (5' 0.5 ) Wt 70.4 kg (155 lb 3.2 oz) LMP 11/05/2022 (Within Days) BMI 29.81 kg/m ASSESSMENT/PLAN: 1. Well adult exam - ICD9: V70.0, ICD10: Z00.00 (primary diagnosis) - Counseled on healthy diet and regular exercise - Calcium intake with supplements or by diet of 1000 mg/day for under 50, 3821-6962 mg/day for 50+ - CBC + DIFF - COMP METABOLIC PANEL 2. Pharyngitis, unspecified etiology - ICD9: 462, ICD10: J02.9 - suspect strep 3. Fatigue, unspecified type - ICD9: 780.79, ICD10: R53.83 - TSH BLD - T4 FREE/FREE THYROX - T3 FREE BLD 4. Chronic diarrhea - ICD9: 787.91, ICD10: K52.9 - CONSULT TO GASTROENTEROLOGY 5. Myalgia - ICD9: 729.1, ICD10: M79.10 - KATHERINE BY IFA WITH REFLEX - RHEUMATOID FACTOR BL - SED RATE [facility] 6. Tonsillar hypertrophy - ICD9: 474.11, ICD10: J35.1 - CONSULT TO ENT - AMOXICILLIN 875 MG-POTASSIUM CLAVULANATE 125 MG TABLET Aron Gaston DO documented in this encounter [facility] 11-05-2022 Miscellaneous Notes Patient returned call and given provider's message below and patient verbalized understanding. Efrain Merino RN Left message for pt to call back. Lisette Piña MA Please notify that urine culture showed likely contamination. If still having s/s needs to f/u for another visit or pcp. documented in this encounter [facility] 11-03-2022 Note HNO ID: [id number] Author: Vic Rothman APRN.MOE Service: ? Author Type: Nurse Practitioner Type: Progress Notes Filed: 11/03/2022 5:18 PM Note Text: Subjective HPI Nontoxic-appearing female presents urgent care chief plaint of possible UTI. Duration of symptoms 3 days. Associated symptoms lower back pain fatigue urinary frequency. Patient states lower back pain started on a walk 3 days ago. Has stayed persistent. Denies any OTC medication use. States slight increased urinary frequency does not know if this is related to possible UTI or increased water over the last few days. States she did have some transient abdominal pain that has since subsided. Denies any history of kidney stones. History of dyspareunia. No urological abnormalities. Denies any fever body aches chills nausea vomiting current abdominal pain. Denies chance of . Is not breast-feeding. .Patient presents with: Urinary Frequency: Frequency, low back pain and bodyaches x 3 days PAST MEDICAL HISTORY Diagnosis Date Dermoid cyst Migraine without aura PAST SURGICAL HISTORY Procedure Laterality Date OVARIAN CYSTECTOMY Bilateral 2021 right and left dermoid cyst removals OVARIAN CYSTECTOMY Left 10/2018 left ov cystectomy, [place] ALLERGIES Patient has no known allergies. MEDICATIONS ondansetron (ZOFRAN) 4 mg tablet Take 4 mg by mouth every 6 hours as needed. folic acid 1 mg tablet Take 1 tablet by mouth once daily. cephALEXin (KEFLEX) 500 mg capsule Take 500 mg by mouth. (Patient not taking: Reported on 11/03/2022) FAMILY HISTORY Adopted: Yes Social History Tobacco Use Smoking status: Never Smokeless tobacco: Never Vaping Use Vaping Use: Never used Substance Use Topics Alcohol use: Yes Drug use: Never BP 128/82 Pulse 82 Temp 37.3 ?C (99.1 ?F) (Tympanic) Resp 16 Wt 70.8 kg (156 lb) LMP 05/26/2022 (Within Days) SpO2 98% BMI 30.42 kg/m? Review of Systems Constitutional: Negative for chills, fever and malaise/fatigue. HENT: Negative for congestion, ear discharge, ear pain, sinus pain and sore throat. Eyes: Negative for blurred vision, pain, discharge and redness. Respiratory: Negative for cough, hemoptysis, sputum production, shortness of breath, wheezing and stridor. Cardiovascular: Negative for chest pain. Gastrointestinal: Negative for abdominal pain, diarrhea, nausea and vomiting. Genitourinary: Positive for frequency. Negative for dysuria, flank pain, hematuria and urgency. Musculoskeletal: Negative for myalgias. Skin: Negative for itching and rash. Neurological: Negative for dizziness and headaches. Objective Physical Exam Constitutional: General: She is not in acute distress. Appearance: She is not toxic-appearing. HENT: Head: Normocephalic. Nose: Nose normal. Mouth/Throat: Mouth: Mucous membranes are moist. Pharynx: Oropharynx is clear. No oropharyngeal exudate or posterior oropharyngeal erythema. Eyes: Pupils: Pupils are equal, round, and reactive to light. Cardiovascular: Rate and Rhythm: Normal rate. Pulmonary: Effort: Pulmonary effort is normal. No respiratory distress. Abdominal: Tenderness: There is abdominal tenderness in the suprapubic area. There is no right CVA tenderness, left CVA tenderness or guarding. Musculoskeletal: Cervical back: Normal range of motion. Lymphadenopathy: Cervical: No cervical adenopathy. Skin: General: Skin is warm and dry. Neurological: General: No focal deficit present. Mental Status: She is alert. ASSESSMENT/PLAN: 1. Urinary frequency - ICD9: 788.41, ICD10: R35.0 - UA DIP, URINE (POC) - URINE CULTURE Urine dip negative. Will culture due to suprapubic tenderness. No antibiotics at today's visit. Treat conservatively at this time. Follow-up PCP 3 to 5 days reevaluation. Supportive therapies discussed. Patient was instructed to immediately proceed to emergency room for any new, worsening, or symptoms lasting longer than anticipated. The patient's clinical presentation is otherwise unremarkable at this time. Based on exam and clinical finding, the patient is stable for discharge. Plan of care was discussed with patient. Patient verbalizes understanding and agrees to plan of care. This note was generated using leemail software. It may contain errors in wording, punctuation, or spelling. Vic Rothman APRN.[facility] 11-03-2022 History of Presen t illness Narrative Subjective HPI Nontoxic-appearing female presents urgent care chief plaint of possible UTI. Duration of symptoms 3 days. Associated symptoms lower back pain fatigue urinary frequency. Patient states lower back pain started on a walk 3 days ago. Has stayed persistent. Denies any OTC medication use. States slight increased urinary frequency does not know if this is related to possible UTI or increased water over the last few days. States she did have some transient abdominal pain that has since subsided. Denies any history of kidney stones. History of dyspareunia. No urological abnormalities. Denies any fever body aches chills nausea vomiting current abdominal pain. Denies chance of . Is not breast-feeding. .Patient presents with: Urinary Frequency: Frequency, low back pain and bodyaches x 3 days PAST MEDICAL HISTORY Diagnosis Date Dermoid cyst Migraine without aura PAST SURGICAL HISTORY Procedure Laterality Date OVARIAN CYSTECTOMY Bilateral 2021 right and left dermoid cyst removals OVARIAN CYSTECTOMY Left 10/2018 left ov cystectomy, [place] ALLERGIES Patient has no known allergies. MEDICATIONS ondansetron (ZOFRAN) 4 mg tablet Take 4 mg by mouth every 6 hours as needed. folic acid 1 mg tablet Take 1 tablet by mouth once daily. cephALEXin (KEFLEX) 500 mg capsule Take 500 mg by mouth. (Patient not taking: Reported on 11/03/2022) FAMILY HISTORY Adopted: Yes Social History Tobacco Use Smoking status: Never Smokeless tobacco: Never Vaping Use Vaping Use: Never used Substance Use Topics Alcohol use: Yes Drug use: Never BP 128/82 Pulse 82 Temp 37.3 C (99.1 F) (Tympanic) Resp 16 Wt 70.8 kg (156 lb) LMP 05/26/2022 (Within Days) SpO2 98% BMI 30.42 kg/m Review of Systems Constitutional: Negative for chills, fever and malaise/fatigue. HENT: Negative for congestion, ear discharge, ear pain, sinus pain and sore throat. Eyes: Negative for blurred vision, pain, discharge and redness. Respiratory: Negative for cough, hemoptysis, sputum production, shortness of breath, wheezing and stridor. Cardiovascular: Negative for chest pain. Gastrointestinal: Negative for abdominal pain, diarrhea, nausea and vomiting. Genitourinary: Positive for frequency. Negative for dysuria, flank pain, hematuria and urgency. Musculoskeletal: Negative for myalgias. Skin: Negative for itching and rash. Neurological: Negative for dizziness and headaches. Objective Physical Exam Constitutional: General: She is not in acute distress. Appearance: She is not toxic-appearing. HENT: Head: Normocephalic. Nose: Nose normal. Mouth/Throat: Mouth: Mucous membranes are moist. Pharynx: Oropharynx is clear. No oropharyngeal exudate or posterior oropharyngeal erythema. Eyes: Pupils: Pupils are equal, round, and reactive to light. Cardiovascular: Rate and Rhythm: Normal rate. Pulmonary: Effort: Pulmonary effort is normal. No respiratory distress. Abdominal: Tenderness: There is abdominal tenderness in the suprapubic area. There is no right CVA tenderness, left CVA tenderness or guarding. Musculoskeletal: Cervical back: Normal range of motion. Lymphadenopathy: Cervical: No cervical adenopathy. Skin: General: Skin is warm and dry. Neurological: General: No focal deficit present. Mental Status: She is alert. ASSESSMENT/PLAN: 1. Urinary frequency - ICD9: 788.41, ICD10: R35.0 - UA DIP, URINE (POC) - URINE CULTURE Urine dip negative. Will culture due to suprapubic tenderness. No antibiotics at today's visit. Treat conservatively at this time. Follow-up PCP 3 to 5 days reevaluation. Supportive therapies discussed. Patient was instructed to immediately proceed to emergency room for any new, worsening, or symptoms lasting longer than anticipated. The patient's clinical presentation is otherwise unremarkable at this time. Based on exam and clinical finding, the patient is stable for discharge. Plan of care was discussed with patient. Patient verbalizes understanding and agrees to plan of care. This note was generated using leemail software. It may contain errors in wording, punctuation, or spelling. Vic Rothman APRN.MOE documented in this encounter [facility] 09-13-2022 Miscellaneous Notes Left second message on . 09/14 appt to establish care with Dr. Gaston needed rescheduled due to provider out of office. 1st attempt, appt rescheduled to first available, left voicemail and sent MC message to inform patient of change. documented in this encounter [facility] 07-30-2022 Note HNO ID: [id number] Author: Rebeca Gonzalez APRN.MOE Service: ? Author Type: Nurse Practitioner Type: Progress Notes Filed: 07/30/2022 9:22 AM Note Text: Triage Note: Patient was seen in ER for c/o abdominal pain and diarrhea. She was also having chest pain. She had a ct of chest and abdomen that were negative. She presents today for c/o bloody diarrhea/ blood in stool. Blood is bright red. Patient does not have PCP. She is having mild cramping. Due to presenting symptoms and blood in stool, advised to go to ED for further evaluation and treatment. Rebeca Gonzalez APRN.CNP [facility] 07-30-2022 History of Presen t illness Narrative Triage Note: Patient was seen in ER for c/o abdominal pain and diarrhea. She was also having chest pain. She had a ct of chest and abdomen that were negative. She presents today for c/o bloody diarrhea/ blood in stool. Blood is bright red. Patient does not have PCP. She is having mild cramping. Due to presenting symptoms and blood in stool, advised to go to ED for further evaluation and treatment. Rebeca Gonzalez APRN.MOE documented in this encounter [facility] 05-27-2022 Note HNO ID: [id number] Author: Gio Mohamud APRN.MOE Service: ? Author Type: Nurse Practitioner Type: Progress Notes Filed: 05/27/2022 10:02 AM Note Text: Subjective HPI HPI Melida Kumar is a 27 year old female who presents today for CC of sore throat, congestion. This started 1 day ago. Has tried nothing for relief. Symptoms are worsened by nothing. Risk factors sick exposures at work/children. Missed menses last month, hx of irregular menses. Denies control. Is sexually active. .Patient presents with: Pain, Throat: Pt reported throat pain, nasal congestion, x1 day. PAST MEDICAL HISTORY Diagnosis Date Dermoid cyst Migraine without aura PAST SURGICAL HISTORY Procedure Laterality Date OVARIAN CYSTECTOMY Bilateral 2021 right and left dermoid cyst removals OVARIAN CYSTECTOMY Left 10/2018 left ov cystectomy, [place] ALLERGIES Patient has no known allergies. MEDICATIONS folic acid 1 mg tablet Take 1 tablet by mouth once daily. amoxicillin (POLYMOX, AMOXIL) 500 mg capsule Take 1 capsule by mouth twice daily for 10 days. FAMILY HISTORY Adopted: Yes Social History Tobacco Use Smoking status: Never Smokeless tobacco: Never Vaping Use Vaping Use: Never used Substance Use Topics Alcohol use: Yes Drug use: Never Review of Systems Constitutional: Negative for fever. HENT: Positive for congestion and sore throat. Negative for ear pain and nosebleeds. Respiratory: Negative for cough, shortness of breath and wheezing. Musculoskeletal: Negative for neck pain. Objective Physical Exam Constitutional: General: She is not in acute distress. Appearance: She is not toxic-appearing or diaphoretic. HENT: Head: Normocephalic and atraumatic. Right Ear: Hearing, tympanic membrane, ear canal and external ear normal. Left Ear: Hearing, tympanic membrane, ear canal and external ear normal. Nose: Nose normal. Mouth/Throat: Pharynx: Uvula midline. Posterior oropharyngeal erythema present. No pharyngeal swelling, oropharyngeal exudate or uvula swelling. Tonsils: 3+ on the right. 3+ on the left. Eyes: General: Lids are normal. No scleral icterus. Right eye: No discharge. Left eye: No discharge. Conjunctiva/sclera: Conjunctivae normal. Pupils: Pupils are equal, round, and reactive to light. Neck: Trachea: Trachea normal. Cardiovascular: Rate and Rhythm: Normal rate and regular rhythm. Heart sounds: Normal heart sounds. Pulmonary: Effort: Pulmonary effort is normal. Breath sounds: Normal breath sounds. Musculoskeletal: Cervical back: Normal range of motion and neck supple. Lymphadenopathy: Cervical: Cervical adenopathy present. Right cervical: Superficial cervical adenopathy present. Left cervical: No superficial cervical adenopathy. Skin: Findings: No rash. Neurological: Mental Status: She is alert and oriented to person, place, and time. ASSESSMENT/PLAN: 1. Strep throat - ICD9: 034.0, ICD10: J02.0 (primary diagnosis) - suspect strep - Alere Strep Test pos, no culture pending - antibiotic as written - Discussed supportive care treatment with fluids, rest and analgesia. - The patient should follow up in 3-5 days if symptoms persist or worsen - Call back if drooling, increased temperature, symptoms of dehydration and/or still sick in one week - AMOXICILLIN 500 MG CAPSULE 2. Throat pain - ICD9: 784.1, ICD10: R07.0 Pos, as above - STREP A MOLECULAR (POC) 3. Missed menses - ICD9: 626.4, ICD10: N92.6 Neg test F/u with water resources technical officer if s/s persist. - HCG QUAL UR B/O Gio Mohamud APRN.[employer] [facility] 05-27-2022 History of Presen t illness Narrative Subjective HPI HPI Melida Kumar is a 27 year old female who presents today for CC of sore throat, congestion. This started 1 day ago. Has tried nothing for relief. Symptoms are worsened by nothing. Risk factors sick exposures at work/children. Missed menses last month, hx of irregular menses. Denies control. Is sexually active. .Patient presents with: Pain, Throat: Pt reported throat pain, nasal congestion, x1 day. PAST MEDICAL HISTORY Diagnosis Date Dermoid cyst Migraine without aura PAST SURGICAL HISTORY Procedure Laterality Date OVARIAN CYSTECTOMY Bilateral 2021 right and left dermoid cyst removals OVARIAN CYSTECTOMY Left 10/2018 left ov cystectomy, [place] ALLERGIES Patient has no known allergies. MEDICATIONS folic acid 1 mg tablet Take 1 tablet by mouth once daily. amoxicillin (POLYMOX, AMOXIL) 500 mg capsule Take 1 capsule by mouth twice daily for 10 days. FAMILY HISTORY Adopted: Yes Social History Tobacco Use Smoking status: Never Smokeless tobacco: Never Vaping Use Vaping Use: Never used Substance Use Topics Alcohol use: Yes Drug use: Never Review of Systems Constitutional: Negative for fever. HENT: Positive for congestion and sore throat. Negative for ear pain and nosebleeds. Respiratory: Negative for cough, shortness of breath and wheezing. Musculoskeletal: Negative for neck pain. Objective Physical Exam Constitutional: General: She is not in acute distress. Appearance: She is not toxic-appearing or diaphoretic. HENT: Head: Normocephalic and atraumatic. Right Ear: Hearing, tympanic membrane, ear canal and external ear normal. Left Ear: Hearing, tympanic membrane, ear canal and external ear normal. Nose: Nose normal. Mouth/Throat: Pharynx: Uvula midline. Posterior oropharyngeal erythema present. No pharyngeal swelling, oropharyngeal exudate or uvula swelling. Tonsils: 3+ on the right. 3+ on the left. Eyes: General: Lids are normal. No scleral icterus. Right eye: No discharge. Left eye: No discharge. Conjunctiva/sclera: Conjunctivae normal. Pupils: Pupils are equal, round, and reactive to light. Neck: Trachea: Trachea normal. Cardiovascular: Rate and Rhythm: Normal rate and regular rhythm. Heart sounds: Normal heart sounds. Pulmonary: Effort: Pulmonary effort is normal. Breath sounds: Normal breath sounds. Musculoskeletal: Cervical back: Normal range of motion and neck supple. Lymphadenopathy: Cervical: Cervical adenopathy present. Right cervical: Superficial cervical adenopathy present. Left cervical: No superficial cervical adenopathy. Skin: Findings: No rash. Neurological: Mental Status: She is alert and oriented to person, place, and time. ASSESSMENT/PLAN: 1. Strep throat - ICD9: 034.0, ICD10: J02.0 (primary diagnosis) - suspect strep - Alere Strep Test pos, no culture pending - antibiotic as written - Discussed supportive care treatment with fluids, rest and analgesia. - The patient should follow up in 3-5 days if symptoms persist or worsen - Call back if drooling, increased temperature, symptoms of dehydration and/or still sick in one week - AMOXICILLIN 500 MG CAPSULE 2. Throat pain - ICD9: 784.1, ICD10: R07.0 Pos, as above - STREP A MOLECULAR (POC) 3. Missed menses - ICD9: 626.4, ICD10: N92.6 Neg test F/u with water resources technical officer if s/s persist. - HCG QUAL UR B/O Gio Mohamud APRN.MOE documented in this encounter [facility] 05-11-2022 Note HNO ID: [id number] Author: Alissa Miller PT Service: ? Author Type: Physical Therapist Type: Progress Notes Filed: 05/11/2022 11:45 AM Note Text: Episode Visit Count: 5 Therapist That Will Accept/Oversee The Plan Of Care: Alissa Miller Start of Care Date: 04/09/22 Onset Date: 10/08/19 Patient Identified by Name and Date of : Yes REHABILITATION AND SPORTS THERAPY PHYSICAL THERAPY DISCONTINUANCE OF CARE PLAN OF CARE UPDATE: Assessment: Melida Kumar is discontinued from Physical Therapy services due to goal achievement and maximal benefit.. Patient was seen for 5 visits from Start of Care Date: 04/09/22 to 05/11/2022 and treatment included: Therapeutic exercise, Manual therapy, and Self-assisted management. Goals for Episode of Care: created on 04/09/22 Updated on: 05/11/22 [place] in home exercise program.-MET Patient will increase flexibility of B hamstrings to WNL to decrease pain.-MET Incontinence: Patient able to cough, sneeze, lift and/or exercise without Leaking-MET Patient reports increased ability to fully empty bowels without straining-NOT MET Pelvic Pain: Patient reports painfree intercourse-MET Patient displays decreased muscle spasms in pelvic floor to allow for decreased pain levels-MET Patient displays improved muscle dynamics of pelvic floor including ability to lengthen-MET Patient Goals: improve pain, improve bladder AND bowel function SUBJECTIVE: Patient Reason for Visit: Pt reports improvement in pelvic pain, no pain with intercourse. Pt reports no OMARI, continued difficulty with bowels but plans on increasing fiber and water intake, will follow up with PCP PRN. Pt reports being pleased with progress, feels comfortable continuing on her own at home. Pain: Pain Pain Level: 0 Post Treatment Pain Post Treatment Pain Level: 0 PROMIS Scales T-scores: mean of general population = 50. 5 points is clinically meaningfully difference Percentiles provide an indication of how the patient's score ranks in relation to the general population. Higher percentile rankings indicate better function/quality of life. 50th percentile is the average of the general population and indicates half of respondents had a worse score. T-scores: mean of general population = 50. 5 points is clinically meaningfully difference Percentiles provide an indication of how the patient's score ranks in relation to the general population. Higher percentile rankings indicate better function/quality of life. 50th percentile is the average of the general population and indicates half of respondents had a worse score. OBJECTIVE MEASURES WITH LEVEL OF FUNCTION: Pelvic Floor Pain with penetration: No Stress Incontinence: No Difficulty evacuating / Excessive Straining: Sometimes Incomplete emptying: Sometimes Pelvic Floor Muscle Assessment Consent for pelvic assessment/testing and treatment: Patient was educated regarding pelvic floor physical therapy assessment/treatment which may include pelvic floor and girdle muscle assessment externally or internally (vaginal or rectal approach)., Patient verbalized consent for the above treatment approaches today. Patient understands they have control of the treatment and an opportunity to stop treatment at any time. Range of Motion: Normal Ability to Lengthen pelvic floor: Yes Pelvic Floor Manual Assessment External Pelvic Region Tenderness/ Hyperactivity - Trunk: Lower abdominals Lower abdominals: Bilateral External Pelvic Region Tenderness/ Hyperactivity - Lower Extremity: Adductor Adductor: Bilateral (/) Pelvic Floor Tenderness/Hyperactivity: Tested Vaginally in Tested Vaginally in : Supine/hooklying (No tightness/tenderness noted.) LE Flexibility Flexibility: Hamstring Flexibility R Hamstring Flexibility: WNL L Hamstring Flexibility: WNL Tissue Restriction/Tenderness Scale: 1= mild, 2= moderate, 3= severe TREATMENT: Manual Therapy: 1: Reassessment 2: Gentle stretching to B pelvic floor, supine 3: MFR to B lower abdominals, supine 4: MFR to B adductors, supine 5: Discussed discharge planning Skilled Intervention: Manual skills to improve joint mobility, ROM, and decrease pain. Utilized anatomy knowledge of the therapist, and assessment of patient's response to intervention. Billing Manual TherapyTreatment Minutes: 41 Total Treatment Time Minutes (timed/untimed): 41 Alissa Miller, PT [facility] 05-11-2022 History of Presen t illness Narrative Episode Visit Count: 5 Therapist That Will Accept/Oversee The Plan Of Care: Alissa Miller Start of Care Date: 04/09/22 Onset Date: 10/08/19 Patient Identified by Name and Date of : Yes REHABILITATION AND SPORTS THERAPY PHYSICAL THERAPY DISCONTINUANCE OF CARE PLAN OF CARE UPDATE: Assessment: Melida Kumar is discontinued from Physical Therapy services due to goal achievement and maximal benefit.. Patient was seen for 5 visits from Start of Care Date: 04/09/22 to 05/11/2022 and treatment included: Therapeutic exercise, Manual therapy, and Self-assisted management. Goals for Episode of Care: created on 04/09/22 Updated on: 05/11/22 [place] in home exercise program.-MET Patient will increase flexibility of B hamstrings to WNL to decrease pain.-MET Incontinence: Patient able to cough, sneeze, lift and/or exercise without Leaking-MET Patient reports increased ability to fully empty bowels without straining-NOT MET Pelvic Pain: Patient reports painfree intercourse-MET Patient displays decreased muscle spasms in pelvic floor to allow for decreased pain levels-MET Patient displays improved muscle dynamics of pelvic floor including ability to lengthen-MET Patient Goals: improve pain, improve bladder & bowel function SUBJECTIVE: Patient Reason for Visit: Pt reports improvement in pelvic pain, no pain with intercourse. Pt reports no OMARI, continued difficulty with bowels but plans on increasing fiber and water intake, will follow up with PCP PRN. Pt reports being pleased with progress, feels comfortable continuing on her own at home. Pain: Pain Pain Level: 0 Post Treatment Pain Post Treatment Pain Level: 0 PROMIS Scales T-scores: mean of general population = 50. 5 points is clinically meaningfully difference Percentiles provide an indication of how the patient's score ranks in relation to the general population. Higher percentile rankings indicate better function/quality of life. 50th percentile is the average of the general population and indicates half of respondents had a worse score. T-scores: mean of general population = 50. 5 points is clinically meaningfully difference Percentiles provide an indication of how the patient's score ranks in relation to the general population. Higher percentile rankings indicate better function/quality of life. 50th percentile is the average of the general population and indicates half of respondents had a worse score. OBJECTIVE MEASURES WITH LEVEL OF FUNCTION: Pelvic Floor Pain with penetration: No Stress Incontinence: No Difficulty evacuating / Excessive Straining: Sometimes Incomplete emptying: Sometimes Pelvic Floor Muscle Assessment Consent for pelvic assessment/testing and treatment: Patient was educated regarding pelvic floor physical therapy assessment/treatment which may include pelvic floor and girdle muscle assessment externally or internally (vaginal or rectal approach)., Patient verbalized consent for the above treatment approaches today. Patient understands they have control of the treatment and an opportunity to stop treatment at any time. Range of Motion: Normal Ability to Lengthen pelvic floor: Yes Pelvic Floor Manual Assessment External Pelvic Region Tenderness/ Hyperactivity - Trunk: Lower abdominals Lower abdominals: Bilateral External Pelvic Region Tenderness/ Hyperactivity - Lower Extremity: Adductor Adductor: Bilateral (/) Pelvic Floor Tenderness/Hyperactivity: Tested Vaginally in Tested Vaginally in : Supine/hooklying (No tightness/tenderness noted.) LE Flexibility Flexibility: Hamstring Flexibility R Hamstring Flexibility: WNL L Hamstring Flexibility: WNL Tissue Restriction/Tenderness Scale: 1= mild, 2= moderate, 3= severe TREATMENT: Manual Therapy: 1: Reassessment 2: Gentle stretching to B pelvic floor, supine 3: MFR to B lower abdominals, supine 4: MFR to B adductors, supine 5: Discussed discharge planning Skilled Intervention: Manual skills to improve joint mobility, ROM, and decrease pain. Utilized anatomy knowledge of the therapist, and assessment of patient's response to intervention. Billing Manual TherapyTreatment Minutes: 41 Total Treatment Time Minutes (timed/untimed): 41 Alissa Miller PT documented in this encounter [facility] 05-04-2022 Note HNO ID: [id number] Author: Alissa Miller PT Service: ? Author Type: Physical Therapist Type: Progress Notes Filed: 05/04/2022 2:08 PM Note Text: Episode Visit Count: 4 Therapist That Will Accept/Oversee The Plan Of Care: Alissa Miller Start of Care Date: 04/09/22 Onset Date: 10/08/19 Patient Identified by Name and Date of : Yes REHABILITATION AND SPORTS THERAPY PHYSICAL THERAPY TREATMENT NOTE ASSESSMENT: Melida Kumar tolerated the session with no issues. She demonstrated improvements in pelvic floor muscle tightness/tenderness. The patient will continue to benefit from ongoing skilled physical therapy to progress toward set goals. PLAN FOR NEXT VISIT: reassessment SUBJECTIVE: Patient Reason for Visit: Pt reports being on period last week and states she was in a lot of pain, significant cramping. Pt reports heat and exercises did not help during that time. Pt reports no pain with intercourse since last visit. Pain: Pain Pain Level: 0 Post Treatment Pain Post Treatment Pain Level: 0 OBJECTIVE MEASURES WITH LEVEL OF FUNCTION: Pelvic Floor Pain with penetration: No Stress Incontinence: No Difficulty evacuating / Excessive Straining: Sometimes Incomplete emptying: Sometimes Pelvic Floor Muscle Assessment Consent for pelvic assessment/testing and treatment: Patient was educated regarding pelvic floor physical therapy assessment/treatment which may include pelvic floor and girdle muscle assessment externally or internally (vaginal or rectal approach)., Patient verbalized consent for the above treatment approaches today. Patient understands they have control of the treatment and an opportunity to stop treatment at any time. Pelvic Floor Manual Assessment External Pelvic Region Tenderness/ Hyperactivity - Trunk: Lower abdominals Lower abdominals: Bilateral (1/1) External Pelvic Region Tenderness/ Hyperactivity - Lower Extremity: Adductor Adductor: Bilateral (2/2) Pelvic Floor Tenderness/Hyperactivity: Tested Vaginally in Tested Vaginally in : Supine/hooklying (No tightness/tenderness noted.) Tissue Restriction/Tenderness Scale: 1= mild, 2= moderate, 3= severe TREATMENT: Manual Therapy: 1: Gentle stretching to B pelvic floor, supine 2: MFR to B lower abdominals, supine 3: MFR to B adductors, supine Skilled Intervention: Manual skills to improve joint mobility, ROM, and decrease pain. Utilized anatomy knowledge of the therapist, and assessment of patient's response to intervention. Billing Manual TherapyTreatment Minutes: 39 Total Treatment Time Minutes (timed/untimed): 39 Alissa Miller, PT [facility] 05-04-2022 History of Presen t illness Narrative Episode Visit Count: 4 Therapist That Will Accept/Oversee The Plan Of Care: Alissa Miller Start of Care Date: 04/09/22 Onset Date: 10/08/19 Patient Identified by Name and Date of : Yes REHABILITATION AND SPORTS THERAPY PHYSICAL THERAPY TREATMENT NOTE ASSESSMENT: Melida Kumar tolerated the session with no issues. She demonstrated improvements in pelvic floor muscle tightness/tenderness. The patient will continue to benefit from ongoing skilled physical therapy to progress toward set goals. PLAN FOR NEXT VISIT: reassessment SUBJECTIVE: Patient Reason for Visit: Pt reports being on period last week and states she was in a lot of pain, significant cramping. Pt reports heat and exercises did not help during that time. Pt reports no pain with intercourse since last visit. Pain: Pain Pain Level: 0 Post Treatment Pain Post Treatment Pain Level: 0 OBJECTIVE MEASURES WITH LEVEL OF FUNCTION: Pelvic Floor Pain with penetration: No Stress Incontinence: No Difficulty evacuating / Excessive Straining: Sometimes Incomplete emptying: Sometimes Pelvic Floor Muscle Assessment Consent for pelvic assessment/testing and treatment: Patient was educated regarding pelvic floor physical therapy assessment/treatment which may include pelvic floor and girdle muscle assessment externally or internally (vaginal or rectal approach)., Patient verbalized consent for the above treatment approaches today. Patient understands they have control of the treatment and an opportunity to stop treatment at any time. Pelvic Floor Manual Assessment External Pelvic Region Tenderness/ Hyperactivity - Trunk: Lower abdominals Lower abdominals: Bilateral (1/1) External Pelvic Region Tenderness/ Hyperactivity - Lower Extremity: Adductor Adductor: Bilateral (2/2) Pelvic Floor Tenderness/Hyperactivity: Tested Vaginally in Tested Vaginally in : Supine/hooklying (No tightness/tenderness noted.) Tissue Restriction/Tenderness Scale: 1= mild, 2= moderate, 3= severe TREATMENT: Manual Therapy: 1: Gentle stretching to B pelvic floor, supine 2: MFR to B lower abdominals, supine 3: MFR to B adductors, supine Skilled Intervention: Manual skills to improve joint mobility, ROM, and decrease pain. Utilized anatomy knowledge of the therapist, and assessment of patient's response to intervention. Billing Manual TherapyTreatment Minutes: 39 Total Treatment Time Minutes (timed/untimed): 39 Alissa Miller PT documented in this encounter [facility] 04-20-2022 Note HNO ID: [id number] Author: Alissa Miller PT Service: ? Author Type: Physical Therapist Type: Progress Notes Filed: 04/20/2022 2:52 PM Note Text: Episode Visit Count: 3 Therapist That Will Accept/Oversee The Plan Of Care: Alissa Miller Start of Care Date: 04/09/22 Onset Date: 10/08/19 Patient Identified by Name and Date of : Yes REHABILITATION AND SPORTS THERAPY PHYSICAL THERAPY TREATMENT NOTE ASSESSMENT: Melida Kumar tolerated the session with decreased symptoms. She demonstrated improvements in stress urinary incontinence and overall pelvic pain, continued difficulty with ability to fully empty bowels without straining. The patient will continue to benefit from ongoing skilled physical therapy to progress toward set goals. PLAN FOR NEXT VISIT: continue manual work SUBJECTIVE: Patient Reason for Visit: Pt reports improvement in pelvic pain since last session, does report some mild cramping today. Pt reports not looking into dilators yet but has not had pain during intercourse since last session. Pt reports fair compliance with HEP. Pain: Pain Pain Level: 4 Pain Location: Back Description: Cramping Frequency: Intermittent Post Treatment Pain Post Treatment Pain Level: 0 OBJECTIVE MEASURES WITH LEVEL OF FUNCTION: Pelvic Floor Pain with penetration: No Stress Incontinence: No Difficulty evacuating / Excessive Straining: Sometimes Incomplete emptying: Sometimes Pelvic Floor Muscle Assessment Consent for pelvic assessment/testing and treatment: Patient was educated regarding pelvic floor physical therapy assessment/treatment which may include pelvic floor and girdle muscle assessment externally or internally (vaginal or rectal approach).;Patient verbalized consent for the above treatment approaches today. Patient understands they have control of the treatment and an opportunity to stop treatment at any time. Pelvic Floor Manual Assessment External Pelvic Region Tenderness/ Hyperactivity - Trunk: Lower abdominals Lower abdominals: Bilateral (1/1) External Pelvic Region Tenderness/ Hyperactivity - Lower Extremity: Adductor Adductor: Bilateral (2/2, L>R) Pelvic Floor Tenderness/Hyperactivity: Tested Vaginally in Tested Vaginally in : Supine/hooklying Deep transverse perineal: Bilateral (1/1) Iliococcygeus: Bilateral (1/1) Pubococcygeus: Bilateral (1/1) Tissue Restriction/Tenderness Scale: 1= mild, 2= moderate, 3= severe TREATMENT: Therapeutic Exercise: 1: *standing sidebend stretch, [id number] each 2: *supine hip flexor stretch, [id number] each 3: *posterior pelvic tilt, 2x10 Skilled Intervention: Patient was educated in proper exercise technique and purpose for exercises. Reviewed and educated patient on additions/changes for home exercise program as above (*). Skilled judgment was provided in selection of appropriate interventions. Provided written instruction for home exercise program to facilitate proper performance and compliance. Manual Therapy: 1: Gentle stretching to B pelvic floor, supine 2: MFR to B lower abdominals, supine 3: MFR to B adductors, supine Skilled Intervention: Manual skills to improve joint mobility, ROM, and decrease pain. Utilized anatomy knowledge of the therapist, and assessment of patient's response to intervention. Billing Therapeutic Exercise Treatment Minutes: 11 Manual TherapyTreatment Minutes: 28 Total Treatment Time Minutes (timed/untimed): 39 Alissa Miller, PT [facility] 04-20-2022 History of Presen t illness Narrative Episode Visit Count: 3 Therapist That Will Accept/Oversee The Plan Of Care: Alissa Miller Start of Care Date: 04/09/22 Onset Date: 10/08/19 Patient Identified by Name and Date of : Yes REHABILITATION AND SPORTS THERAPY PHYSICAL THERAPY TREATMENT NOTE ASSESSMENT: Melida Kumar tolerated the session with decreased symptoms. She demonstrated improvements in stress urinary incontinence and overall pelvic pain, continued difficulty with ability to fully empty bowels without straining. The patient will continue to benefit from ongoing skilled physical therapy to progress toward set goals. PLAN FOR NEXT VISIT: continue manual work SUBJECTIVE: Patient Reason for Visit: Pt reports improvement in pelvic pain since last session, does report some mild cramping today. Pt reports not looking into dilators yet but has not had pain during intercourse since last session. Pt reports fair compliance with HEP. Pain: Pain Pain Level: 4 Pain Location: Back Description: Cramping Frequency: Intermittent Post Treatment Pain Post Treatment Pain Level: 0 OBJECTIVE MEASURES WITH LEVEL OF FUNCTION: Pelvic Floor Pain with penetration: No Stress Incontinence: No Difficulty evacuating / Excessive Straining: Sometimes Incomplete emptying: Sometimes Pelvic Floor Muscle Assessment Consent for pelvic assessment/testing and treatment: Patient was educated regarding pelvic floor physical therapy assessment/treatment which may include pelvic floor and girdle muscle assessment externally or internally (vaginal or rectal approach).;Patient verbalized consent for the above treatment approaches today. Patient understands they have control of the treatment and an opportunity to stop treatment at any time. Pelvic Floor Manual Assessment External Pelvic Region Tenderness/ Hyperactivity - Trunk: Lower abdominals Lower abdominals: Bilateral (1/1) External Pelvic Region Tenderness/ Hyperactivity - Lower Extremity: Adductor Adductor: Bilateral (2/2, L>R) Pelvic Floor Tenderness/Hyperactivity: Tested Vaginally in Tested Vaginally in : Supine/hooklying Deep transverse perineal: Bilateral (1/1) Iliococcygeus: Bilateral (1/1) Pubococcygeus: Bilateral (1/1) Tissue Restriction/Tenderness Scale: 1= mild, 2= moderate, 3= severe TREATMENT: Therapeutic Exercise: 1: *standing sidebend stretch, [id number] each 2: *supine hip flexor stretch, [id number] each 3: *posterior pelvic tilt, 2x10 Skilled Intervention: Patient was educated in proper exercise technique and purpose for exercises. Reviewed and educated patient on additions/changes for home exercise program as above (*). Skilled judgment was provided in selection of appropriate interventions. Provided written instruction for home exercise program to facilitate proper performance and compliance. Manual Therapy: 1: Gentle stretching to B pelvic floor, supine 2: MFR to B lower abdominals, supine 3: MFR to B adductors, supine Skilled Intervention: Manual skills to improve joint mobility, ROM, and decrease pain. Utilized anatomy knowledge of the therapist, and assessment of patient's response to intervention. Billing Therapeutic Exercise Treatment Minutes: 11 Manual TherapyTreatment Minutes: 28 Total Treatment Time Minutes (timed/untimed): 39 Alissa Miller PT documented in this encounter [facility] 04-13-2022 Note HNO ID: [id number] Author: Alissa Miller PT Service: ? Author Type: Physical Therapist Type: Progress Notes Filed: 04/13/2022 12:37 PM Note Text: Episode Visit Count: 2 Therapist That Will Accept/Oversee The Plan Of Care: Alissa Miller Start of Care Date: 04/09/22 Onset Date: 10/08/19 Patient Identified by Name and Date of : Yes REHABILITATION AND SPORTS THERAPY PHYSICAL THERAPY TREATMENT NOTE ASSESSMENT: Melida Kumar tolerated the session with no issues. She demonstrated improvements in pain with intercourse, otherwise no change in pelvic pain per patient report. The patient will continue to benefit from ongoing skilled physical therapy to progress toward set goals. PLAN FOR NEXT VISIT: progress stretches, internal/external manual work SUBJECTIVE: Patient Reason for Visit: Pt reports no change in pelvic pain since last session but does report no pain with intercourse since last session. Pt reports poor compliance with HEP. Pt reports no change in bowel function, has not attempted squatty potty. Pain: Pain Pain Level: 0 Post Treatment Pain Post Treatment Pain Level: 0 OBJECTIVE MEASURES WITH LEVEL OF FUNCTION: Pelvic Floor Pain with penetration: No Difficulty evacuating / Excessive Straining: Sometimes Incomplete emptying: Sometimes Pelvic Floor Muscle Assessment Consent for pelvic assessment/testing and treatment: Patient was educated regarding pelvic floor physical therapy assessment/treatment which may include pelvic floor and girdle muscle assessment externally or internally (vaginal or rectal approach).;Patient verbalized consent for the above treatment approaches today. Patient understands they have control of the treatment and an opportunity to stop treatment at any time. Pelvic Floor Manual Assessment External Pelvic Region Tenderness/ Hyperactivity - Trunk: Lower abdominals Lower abdominals: Bilateral (1/1) External Pelvic Region Tenderness/ Hyperactivity - Lower Extremity: Adductor Adductor: Bilateral (2/2, L>R) Tissue Restriction/Tenderness Scale: 1= mild, 2= moderate, 3= severe TREATMENT: Therapeutic Exercise: 1: *piriformis stretch, [id number] each 2: *supine 90/90 hamstring stretch, [id number] each 3: *LTR, [id number] each Skilled Intervention: Patient was educated in proper exercise technique and purpose for exercises. Reviewed and educated patient on additions/changes for home exercise program as above (*). Skilled judgment was provided in selection of appropriate interventions. Provided written instruction for home exercise program to facilitate proper performance and compliance. Manual Therapy: 1: MFR to B lower abdominals, supine 2: MFR to B adductors, supine Skilled Intervention: Manual skills to improve joint mobility, ROM, and decrease pain. Utilized anatomy knowledge of the therapist, and assessment of patient's response to intervention. Self-Skilled Nursing Management: 1: Reviewed purpose and function of vaginal dilators for internal self-STM Skilled Intervention: Skilled judgment in the selection of proper modification for activity of daily living/home management based on clinical presentation, deficits, and needs. Provided written instruction for activities of daily living techniques to facilitate proper performance and compliance. Billing Therapeutic Exercise Treatment Minutes: 13 Manual TherapyTreatment Minutes: 16 Self-Care/Home Management Treatment Minutes: 10 Total Treatment Time Minutes (timed/untimed): 39 Alissa Miller, PT [facility] 04-13-2022 History of Presen t illness Narrative Episode Visit Count: 2 Therapist That Will Accept/Oversee The Plan Of Care: Alissa Miller Start of Care Date: 04/09/22 Onset Date: 10/08/19 Patient Identified by Name and Date of : Yes REHABILITATION AND SPORTS THERAPY PHYSICAL THERAPY TREATMENT NOTE ASSESSMENT: Melida Kumar tolerated the session with no issues. She demonstrated improvements in pain with intercourse, otherwise no change in pelvic pain per patient report. The patient will continue to benefit from ongoing skilled physical therapy to progress toward set goals. PLAN FOR NEXT VISIT: progress stretches, internal/external manual work SUBJECTIVE: Patient Reason for Visit: Pt reports no change in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 Also she reports intermittent low back back with shoots up her back and also has pain in her ovaries at this time. She would like to see a specialist for these concerns. Menses: cycles every 28-3- days and 4-5 days of flow. Contraception: none HPV vaccine: Yes Last Pap: unsure History of abnormal pap: No Last mammogram: never Sexually active: Yes OB History No obstetric history on file. Ultrasound Coordinator History LMP: 12/31/2021, Having periods Age at Menarche: Age at First : Age at Menopause: Ultrasound Coordinator History Comments: Sexual Activity: Yes; Male Contraception: None PAST MEDICAL HISTORY Diagnosis Date Dermoid cyst Migraine without aura PAST SURGICAL HISTORY Procedure Laterality Date OVARIAN CYSTECTOMY Bilateral 2021 right and left dermoid cyst removals FAMILY HISTORY Adopted: Yes SOCIAL HISTORY Social History Tobacco Use Smoking status: Never Smokeless tobacco: Never Vaping Use Vaping Use: Never used Substance Use Topics Alcohol use: Yes Drug use: Never REVIEW OF SYSTEMS Abdomen: No abdominal pain, nausea, vomiting, diarrhea, or constipation. No bloating, early satiety, indigestion, or increased flatulence. Bladder: No dysuria, gross hematuria, urinary frequency, urinary urgency, or incontinence. Breast: No breast lumps, nipple d/c, overlying skin changes, redness or skin retraction. Allergies and current medication updated:Yes EXAM: BP 106/62 Ht 5' 1.22 (1.56m) Wt 151 lb 12.8 oz (68.9kg) LMP 12/31/2021 BMI 28.48 kg/(m^2). GENERAL: pleasant, female in no apparent distress BREAST: soft, non-tender, symmetric, no dominant mass, normal nipple-areolar complex, no lymphadenopathy, and no nipple discharge CHEST: Normal inspiratory effort ABDOMEN: soft, non-tender, and no masses PELVIC: external genitalia normal, normal Bartholin's glands, urethra, Enders's glands, no vulvar lesions, no cervical lesions, good vaginal support, physiologic discharge present, normal appearing perineal body and perianal region BIMANUAL: uterus normal size, shape and consistency, no adnexal masses, and minimal tenderness RECTOVAGINAL: deferred. NEURO: alert and oriented x3,exam grossly non-focal EXTREMITIES: normal ASSESSMENT/PLAN: 1) Health maintenance: Pap done with reflex HPV. Nutrition, exercise and routine health maintenance exams reviewed. HPV vaccine: completed series 2) Contraception: none - advised on preconception folic acid intake. 3) STD screening: Declined STD check. 4) Follow up one year or sooner as needed 5) Frequent ovarian cysts (including dermoid), low back pain, dyspareunia & pelvic pain - consult to pelvic pain clinic & pelvic US ordered Alejandra Kline MD documented in this encounter [facility] 12-21-2021 Note HNO ID: [id number] Author: Jamia Marie APRN.EXCEPTIONAL CHILDREN'S TEACHER Service: ? Author Type: Nurse Practitioner Type: Progress Notes Filed: 12/21/2021 11:15 AM Note Text: This note was created using NoteWriter. Subjective Melida Kumar is a 26 year old female. 26 year old female with no significant PMH presents for illness. Acute onset yesterday Multiple varied complaints. +nausea +headache +low back pain +body aches +fatigue +ear pain Did not sleep last night related to nausea. +fever 101 last night Endorses that she fell asleep on her left arm yesterday evening, Tingling sensation, which is improving. Denies cough. Denies CP. Denies dyspnea. Denies hemoptysis. Denies emesis. 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 +ill contacts The history is provided by the patient. No sign language teacher was used. Illness The current episode started yesterday. The onset was sudden. The problem occurs continuously. The problem has been unchanged. The problem is moderate. Nothing relieves the symptoms. Nothing aggravates the symptoms. Associated symptoms include a fever, nausea, ear pain, headaches, swollen glands and muscle aches. Pertinent negatives include no decreased vision, no double vision, no eye itching, no photophobia, no abdominal pain, no diarrhea, no vomiting, no congestion, no ear discharge, no sore throat, no neck pain, no cough, no URI, no wheezing, no rash, no eye discharge, no eye pain and no eye redness. She has been Drinking less than usual and eating less than usual. Urine output has been normal. The last void occurred Less than 6 hours ago. There were sick contacts at work. She has received no recent medical care. PAST MEDICAL HISTORY Diagnosis Date Migraine without aura No past surgical history on file. ALLERGIES Patient has no known allergies. MEDICATIONS Levonorgestrel-Ethinyl Estrad (AVIANE) 0.1mg - 20mcg per tabletTake 1 tablet by mouth once daily.Disp: 28 tabletRfl: 14 (Patient not taking: Reported on 12/21/2021) No family history on file. Social History Tobacco Use Smoking status: Never Smokeless tobacco: Never Review of Systems Constitutional: Positive for activity change, chills, fatigue and fever. HENT: Positive for ear pain. Negative for congestion, ear discharge, sinus pressure, sinus pain and sore throat. Eyes: Negative for double vision, photophobia, pain, discharge, redness and itching. Respiratory: Negative for apnea, cough, chest tightness and wheezing. Cardiovascular: Negative for chest pain, palpitations and leg swelling. Gastrointestinal: Positive for nausea. Negative for abdominal pain, diarrhea and vomiting. Musculoskeletal: Negative for arthralgias, back pain and neck pain. Skin: Negative for color change, pallor and rash. Allergic/Immunologic: Negative for environmental allergies, food allergies and immunocompromised state. Neurological: Positive for headaches. Negative for dizziness and facial asymmetry. +tingling left arm Hematological: Negative for adenopathy. Does not bruise/bleed easily. Psychiatric/Behavioral: Negative for agitation and behavioral problems. Objective BP 124/86 Pulse (!) 137 Temp (!) 38.7 ?C (101.7 ?F) Resp 18 Wt 70.4 kg (155 lb 3.2 oz) LMP 11/13/2021 (Within Days) SpO2 98% BMI 30.31 kg/m? Physical Exam Vitals and nursing note reviewed. Constitutional: General: She is not in acute distress. Appearance: Normal appearance. She is normal weight. She is not ill-appearing, toxic-appearing or diaphoretic. Comments: Febrile Non toxic HENT: Head: Normocephalic and atraumatic. Right Ear: Ear canal and external ear normal. Left Ear: Ear canal and external ear normal. Nose: Nose normal. No congestion or rhinorrhea. Mouth/Throat: Mouth: Mucous membranes are moist. Pharynx: No oropharyngeal exudate or posterior oropharyngeal erythema. Eyes: General: Right eye: No discharge. Left eye: No discharge. Extraocular Movements: Extraocular movements intact. Conjunctiva/sclera: Conjunctivae normal. Pupils: Pupils are equal, round, and reactive to light. Cardiovascular: Rate and Rhythm: Regular rhythm. Tachycardia present. Pulses: Normal pulses. Heart sounds: Normal heart sounds. No murmur heard. No friction rub. Pulmonary: Effort: Pulmonary effort is normal. No respiratory distress. Breath sounds: Normal breath sounds. No stridor. No wheezing, rhonchi or rales. Chest: Chest wall: No tenderness. Abdominal: General: Abdomen is flat. There is no distension. Palpations: Abdomen is soft. There is no mass. Tenderness: There is no abdominal tenderness. There is no right CVA tenderness, left CVA tenderness, guarding or rebound. Hernia: No hernia is present. Musculoskeletal: General: No swelling, tenderness, deformity or signs of injury. Normal range of motion. Cervical back: Normal range of motion and neck supple. N (more content not included)... [facility] 12-21-2021 History of Presen t illness Narrative This note was created using [employer]. Subjective Melida Kumar is a 26 year old female. 26 year old female with no significant PMH presents for illness. Acute onset yesterday Multiple varied complaints. +nausea +headache +low back pain +body aches +fatigue +ear pain Did not sleep last night related to nausea. +fever 101 last night Endorses that she fell asleep on her left arm yesterday evening, Tingling sensation, which is improving. Denies cough. Denies CP. Denies dyspnea. Denies hemoptysis. Denies emesis. 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 +ill contacts The history is provided by the patient. No sign language teacher was used. Illness The current episode started yesterday. The onset was sudden. The problem occurs continuously. The problem has been unchanged. The problem is moderate. Nothing relieves the symptoms. Nothing aggravates the symptoms. Associated symptoms include a fever, nausea, ear pain, headaches, swollen glands and muscle aches. Pertinent negatives include no decreased vision, no double vision, no eye itching, no photophobia, no abdominal pain, no diarrhea, no vomiting, no congestion, no ear discharge, no sore throat, no neck pain, no cough, no URI, no wheezing, no rash, no eye discharge, no eye pain and no eye redness. She has been Drinking less than usual and eating less than usual. Urine output has been normal. The last void occurred Less than 6 hours ago. There were sick contacts at work. She has received no recent medical care. PAST MEDICAL HISTORY Diagnosis Date Migraine without aura No past surgical history on file. ALLERGIES Patient has no known allergies. MEDICATIONS Levonorgestrel-Ethinyl Estrad (AVIANE) 0.1mg - 20mcg per tablet^Take 1 tablet by mouth once daily.^Disp: 28 tablet^Rfl: 14 (Patient not taking: Reported on 12/21/2021) No family history on file. Social History Tobacco Use Smoking status: Never Smokeless tobacco: Never Review of Systems Constitutional: Positive for activity change, chills, fatigue and fever. HENT: Positive for ear pain. Negative for congestion, ear discharge, sinus pressure, sinus pain and sore throat. Eyes: Negative for double vision, photophobia, pain, discharge, redness and itching. Respiratory: Negative for apnea, cough, chest tightness and wheezing. Cardiovascular: Negative for chest pain, palpitations and leg swelling. Gastrointestinal: Positive for nausea. Negative for abdominal pain, diarrhea and vomiting. Musculoskeletal: Negative for arthralgias, back pain and neck pain. Skin: Negative for color change, pallor and rash. Allergic/Immunologic: Negative for environmental allergies, food allergies and immunocompromised state. Neurological: Positive for headaches. Negative for dizziness and facial asymmetry. +tingling left arm Hematological: Negative for adenopathy. Does not bruise/bleed easily. Psychiatric/Behavioral: Negative for agitation and behavioral problems. Objective BP 124/86 Pulse (!) 137 Temp (!) 38.7 C (101.7 F) Resp 18 Wt 70.4 kg (155 lb 3.2 oz) LMP 11/13/2021 (Within Days) SpO2 98% BMI 30.31 kg/m Physical Exam Vitals and nursing note reviewed. Constitutional: General: She is not in acute distress. Appearance: Normal appearance. She is normal weight. She is not ill-appearing, toxic-appearing or diaphoretic. Comments: Febrile Non toxic HENT: Head: Normocephalic and atraumatic. Right Ear: Ear canal and external ear normal. Left Ear: Ear canal and external ear normal. Nose: Nose normal. No congestion or rhinorrhea. Mouth/Throat: Mouth: Mucous membranes are moist. Pharynx: No oropharyngeal exudate or posterior oropharyngeal erythema. Eyes: General: Right eye: No discharge. Left eye: No discharge. Extraocular Movements: Extraocular movements intact. Conjunctiva/sclera: Conjunctivae normal. Pupils: Pupils are equal, round, and reactive to light. Cardiovascular: Rate and Rhythm: Regular rhythm. Tachycardia present. Pulses: Normal pulses. Heart sounds: Normal heart sounds. No murmur heard. No friction rub. Pulmonary: Effort: Pulmonary effort is normal. No respiratory distress. Breath sounds: Normal breath sounds. No stridor. No wheezing, rhonchi or rales. Chest: Chest wall: No tenderness. Abdominal: General: Abdomen is flat. There is no distension. Palpations: Abdomen is soft. There is no mass. Tenderness: There is no abdominal tenderness. There is no right CVA tenderness, left CVA tenderness, guarding or rebound. Hernia: No hernia is present. Musculoskeletal: General: No swelling, tenderness, deformity or signs of injury. Normal range of motion. Cervical back: Normal range of motion and neck supple. No rigidity. Right lower leg: No edema. Left lower leg: No edema. Comments: Left upper and lower strength 5/5 +neuro +sensation Skin intact. Lymphadenopathy: Cervical: No cervical adenopathy. Skin: General: Skin is warm and dry. Capillary Refill: Capillary refill takes less than 2 seconds. Coloration: Skin is not jaundiced or pale. Findings: No bruising, erythema, lesion or rash. Neurological: General: No focal deficit present. Mental Status: She is alert and oriented to person, place, and time. Cranial Nerves: No cranial nerve deficit. Sensory: No sensory deficit. Motor: No weakness. Coordination: Coordination normal. Gait: Gait normal. Psychiatric: Mood and Affect: Mood normal. Behavior: Behavior normal. Thought Content: Thought content normal. Judgment: Judgment normal. Assessment and Plan ASSESSMENT/PLAN: 1. Viral illness - ICD9: 079.99, ICD10: B34.9 (primary diagnosis) Discussed given her multiple and varied symptoms likely viral No red flags Well appearing - Discussed viral etiology and rationale for treatment. - Symptomatic treatment with prn analgesia - Supportive care with fluids and rest - The patient may also use OTC cough and cold meds as needed, warm salt water gargles, throat lozenges and/or OTC throat spray as needed, and nasal saline gtts and suction prn. - Follow up in 3-5 days if symptoms persist or sooner if worsening of symptoms - KETOROLAC 60 MG/2 ML INTRAMUSCULAR SOLUTION - ACETAMINOPHEN 500 MG TABLET - COVID WITH FLUA+B, ROUTINE 2. Fever, unspecified fever cause - ICD9: 780.60, ICD10: R50.9 Initially was 101.7 with heart rate of 137 Reexamined patient at 0650 and temperature at 100.9 Heart rate 111 Endorses she feels better than when she presented Continue supportive measures Work note provided Jamia Marie APRN.CNP documented in this encounter [facility] 10-06-2021 History of Presen t illness Narrative Melida Kumar is a 26 year old female who presents for concerns. HPI: Patient presents with h/o dermoid cysts. She's had 2 surgeries for the dermoids. Her most recent surgery was in May of 2021. Surgery was planned for right ovarian cystectomy only but ended up having a left ovarian cystectomy as well. She is concerned about having more dermoid cysts in the future. Today she denies any pelvic pain. OB History No obstetric history on file. Ultrasound Coordinator History LMP: 09/13/2021, Having periods Age at Menarche: Age at First : Age at Menopause: Ultrasound Coordinator History Comments: Sexual Activity: No sexual activity data on record; No partner data on record Contraception: No contraception data on record No past medical history on file. No past surgical history on file. No family history on file. Social History Tobacco Use Smoking status: Never Smoker Smokeless tobacco: Never Used Substance Use Topics Alcohol use: Not on file Drug use: Not on file No current outpatient medications on file. No current facility-administered medications for this visit. Allergies As of Date: 10/06/2021 (No Known Allergies) Fully Assessed 10/06/2021 Allergies and current medication updated:Yes EXAM: BP 110/74 Ht 5' 0 (1.52m) Wt 153 lb (69.4kg) LMP 09/13/2021 BMI 29.88 kg/(m^2). GENERAL: pleasant, female in no apparent distress ASSESSMENT AND PLAN: 26yo female with h/o dermoid cysts [facility] pathology records & post-op note reviewed from 06/16 surgery. Pathology confirms dermoid cysts. Discussed that would recommend [facility] referral if develops any dermoid cysts in the future. control - discussed R/B/A of control and she wishes to proceed with ocps. Use & risks reviewed. Patient has migraine headaches rarely & denies aura. F/u 3 months for annual or PRN Medical Decision Making: Problems: Low: Stable chronic illness Data: Unique source(s) for external note(s) reviewed: 1 Unique test result(s) reviewed: 1 Risk: Moderate: Drug management Medical Decision Making Level: 3 - Low Alejandra Kline MD documented in this encounter [facility] 08-27-2021 History of Presen t illness Narrative Subjective HPI HPI Melida Kumar is a 26 year old female who presents today for CC of st, cough, body aches, cp/sob with cough. This started 4 days ago. Has tried otc medication for relief. Symptoms are worsened by nothing. Denies n/v/d. Nonsmoker. Denies possibility of being . .Patient presents with: Sore Throat: cough, bodyaches x 4 days No past medical history on file. No past surgical history on file. ALLERGIES Patient has no allergy information on record. MEDICATIONS predniSONE (DELTASONE) 20 mg tablet Take 2 tablets by mouth once daily for 5 days. No family history on file. Social History Tobacco Use Smoking status: Never Smoker Smokeless tobacco: Never Used Substance Use Topics Alcohol use: Not on file Drug use: Not on file ROS Objective Blood pressure 102/80, pulse 91, temperature 36.7 C (98 F), resp. rate 19, weight 69.6 kg (153 lb 6.4 oz), SpO2 95 %. Physical Exam Constitutional: General: She is not in acute distress. Appearance: She is not toxic-appearing or diaphoretic. HENT: Head: Normocephalic and atraumatic. Mouth/Throat: Lips: Sunflower. Mouth: Mucous membranes are moist. Pharynx: Posterior oropharyngeal erythema present. No pharyngeal swelling, oropharyngeal exudate or uvula swelling. Cardiovascular: Rate and Rhythm: Normal rate and regular rhythm. Heart sounds: Normal heart sounds, S1 normal and S2 normal. Pulmonary: Effort: Pulmonary effort is normal. Breath sounds: Normal breath sounds. Lymphadenopathy: Cervical: No cervical adenopathy. Right cervical: No superficial cervical adenopathy. Left cervical: No superficial cervical adenopathy. Neurological: Mental Status: She is alert and oriented to person, place, and time. Gait: Gait is intact. ASSESSMENT/PLAN: 1. Sore throat - ICD9: 462, ICD10: J02.9 (primary diagnosis) - suspect viral - Alere Strep Test neg, no culture pending - Discussed supportive care treatment with fluids, rest and analgesia. - The patient should follow up in 3-5 days if symptoms persist or worsen - ALERE STREP A TEST (AG) 2. Cough - ICD9: 786.2, ICD10: R05.9 Suspect viral uri Discussed quarantine, social distancing otc medications discussed Push fluids -If you experience chest pain/shortness of breath go to ER - COVID WITH FLUA+B, ROUTINE - PREDNISONE 20 MG TABLET Agrees to plan Gio Mohamud APRN.MOE documented in this encounter [facility] History of dermoid cyst excision- Primary Personal history of surgery to other organs control counseling General counseling for initiation of other contraceptive measures [facility] Diagnosis Viral illness- Primary Unspecified viral infection, in conditions classified elsewhere and of unspecified site Fever, unspecified fever cause [facility] Diagnosis Encounter for screening for malignant neoplasm of cervix- Primary Screening for malignant neoplasm of the cervix History of ovarian cyst Personal history of other genital system and obstetric disorders Dyspareunia, female Dyspareunia Acute midline low back pain without sciatica Pelvic pain in female Unspecified symptom associated with female genital organs [facility] Diagnosis Dyspareunia, female- Primary Dyspareunia High-tone pelvic floor dysfunction Other specified disorders of female genital organs [facility] Diagnosis Dyspareunia, female- Primary Dyspareunia High-tone pelvic floor dysfunction Other specified disorders of female genital organs [facility] Diagnosis Dyspareunia, female- Primary Dyspareunia High-tone pelvic floor dysfunction Other specified disorders of female genital organs [facility] Diagnosis Dyspareunia, female- Primary Dyspareunia High-tone pelvic floor dysfunction Other specified disorders of female genital organs [facility] [facility] Diagnosis Dyspareunia, female- Primary Dyspareunia High-tone pelvic floor dysfunction Other specified disorders of female genital organs [facility] Diagnosis Strep throat- Primary Streptococcal sore throat Throat pain Missed menses Absence of menstruation [facility] Diagnosis Bloody diarrhea- Primary Diarrhea [facility] Diagnosis Urinary frequency- Primary [facility] Diagnosis Well adult exam- Primary Routine general medical examination at a health care facility Pharyngitis, unspecified etiology Fatigue, unspecified type Chronic diarrhea Diarrhea Myalgia Mylagia and myositis, unspecified Tonsillar hypertrophy Hypertrophy of tonsils alone documented in this encounter [facility] Instructions * Patient Instructions* Sandy Pozo PA-C - 07/02/2018 9:32 AM EDT -start using the eye drops in the affected eye. Take as directed. -do not touch the eye dropper to your eye -you may apply warm compresses to the eye for 15 minutes every 2-3 hours to help with itchiness anddryness -try to not rub or touch your eye as much as possible Follow up with PCP or your eye doctor if no improvement in your symptoms in 3-5 days or proceed to ED urgently if your symptoms worsen or new symptoms develop (you can call [id number] to aid in establishing care with a primary care provider if you do not have one) Your blood pressure is elevated today, which could be a sign of pre-hypertension or hypertension. Irecommend that you call your primary care provider as soon as possible to arrange follow-up in the next 4 weeks for further evaluation of possible pre-hypertension or hypertension. Pinkeye: Care Instructions Your Care Instructions Pinkeye is redness and swelling of the eye surface and the conjunctiva (the lining of the eyelid and the covering of the white part of the eye). Pinkeye is also called conjunctivitis. Pinkeye is often caused by infection with bacteria or a virus. Dry air, allergies, smoke, and chemicals are other common causes. Pinkeye often clears on its own in 7 to 10 days. Antibiotics only help if the pinkeye is caused by bacteria. Pinkeye caused by infection spreads easily. If an allergy or chemical is causing pinkeye, it will not go away unless you can avoid whatever is causing it. Follow-up care is a slater part of your treatment and safety. Be sure to make and go to all appointments, and call your doctor if you are having problems. It's also a good idea to know your test resultsand keep a list of the medicines you take. How can you care for yourself at home? Wash your hands often. Always wash them before and after you treat pinkeye or touch your eyes or face. Use moist cotton or a clean, wet cloth to remove crust. Wipe from the inside corner of the eye to the outside. Use a clean part of the cloth for each wipe. Put cold or warm wet cloths on your eye a few times a day if the eye hurts. Do not wear contact lenses or eye makeup until the pinkeye is gone. Throw away any eye makeup you were using when you got pinkeye. Clean your contacts and storage case. If you wear disposable contacts, use a new pair when your eye has cleared and it is safe to wear contacts again. If the doctor gave you antibiotic ointment or eyedrops, use them as directed. Use the medicine for as long as instructed, even if your eye starts looking better soon. Keep the bottle tip clean, and do not let it touch the eye area. To put in eyedrops or ointment: ? Tilt your head back, and pull your lower eyelid down with one finger. ? Drop or squirt the medicine inside the lower lid. ? Close your eye for 30 to 60 seconds to let the drops or ointment move around. ? Do not touch the ointment or dropper tip to your eyelashes or any other surface. Do not share towels, pillows, or washcloths while you have pinkeye. When should you call for help? Call your doctor now or seek immediate medical care if: You have pain in your eye, not just irritation on the surface. You have a change in vision or loss of vision. You have an increase in discharge from the eye. Your eye has not started to improve or begins to get worse within 48 hours after you start using antibiotics. Pinkeye lasts longer than 7 days. Watch closely for changes in your health, and be sure to contact your doctor if you have any problems. Where can you learn more? Log into your personal health record on https://[employer]hart.[employer]Early and enter Y392 in the Education box to learn more about Pinkeye: Care Instructions. Current as of: December 18, 2017 Content Version: 12.0 4831-1295 [employer]. Care instructions adapted under license by your healthcare professional. If you have questions about a medical condition or this instruction, always ask your healthcare professional. [employer] disclaims any warranty or liability for your use of this information. in this encounter* Patient Instructions* Aydin Maldonado PA-C - 09/25/2018 12:38 PM EDT Tonsillitis: Care Instructions Your Care Instructions Tonsillitis is an infection of the tonsils that is caused by bacteria or a virus. The tonsils are in the back of the throat and are part of the immune system. Tonsillitis typically lasts from a few days up to a couple of weeks. Tonsillitis caused by a virus goes away on its own. Tonsillitis caused by the bacteria that causes strep throat is treated with antibiotics. You and your doctor may consider surgery to remove the tonsils (tonsillectomy) if you have serious complications or repeat infections. Follow-up care is a slater part of your treatment and safety. Be sure to make and go to all appointments, and call your doctor if you are having problems. It's also a good idea to know your test resultsand keep a list of the medicines you take. How can you care for yourself at home? If your doctor prescribed antibiotics, take them as directed. Do not stop taking them just because you feel better. You need to take the full course of antibiotics. Gargle with warm salt water. This helps reduce swelling and relieve discomfort. Gargle once an hourwith 1 teaspoon of salt mixed in 8 fluid ounces of warm water. Take an oeuk-iib-ftdmhcs pain medicine, such as acetaminophen (Tylenol), ibuprofen (Advil, Motrin),or naproxen (Aleve). Be safe with medicines. Read and follow all instructions on the label. No one younger than 20 should take aspirin. It has been linked to Kolby syndrome, a serious illness. Be careful when taking josv-npm-typnont cold or flu medicines and Tylenol at the same time. Many ofthese medicines have acetaminophen, which is Tylenol. Read the labels to make sure that you are nottaking more than the recommended dose. Too much acetaminophen (Tylenol) can be harmful. Try an rmqs-rlg-mmxltrx throat spray to relieve throat pain. Drink plenty of fluids. Fluids may help soothe an irritated throat. Drink warm or cool liquids (whichever feels better). These include tea, soup, and juice. Do not smoke, and avoid secondhand smoke. Smoking can make tonsillitis worse. If you need help quitting, talk to your doctor about stop-smoking programs and medicines. These can increase your chancesof quitting for good. Use a vaporizer or humidifier to add moisture to your bedroom. Follow the directions for cleaning the machine. When should you call for help? Call your doctor now or seek immediate medical care if: Your pain gets worse on one side of your throat. You have a new or higher fever. You notice changes in your voice. You have trouble opening your mouth. You have any trouble breathing. You have much more trouble swallowing. You have a fever with a stiff neck or a severe headache. You are sensitive to light or feel very sleepy or confused. Watch closely for changes in your health, and be sure to contact your doctor if: You do not get better after 2 days. Where can you learn more? Log into your personal health record on https://[employer]isfair and enter M655 in the Education box to learn more about Tonsillitis: Care Instructions. Current as of: January 15, 2018 Content Version: 12.0 3268-9905 [employer]. Care instructions adapted under license by your healthcare professional. If you have questions about a medical condition or this instruction, always ask your healthcare professional. [employer] disclaims any warranty or liability for your use of this information. documented in this encounter* Patient Instructions* Nathan Forde, - 01/01/2019 10:05 AM EDT Your strep test was negative Sore throat: Most sore throats are caused by viruses so antibiotics don't help. (Antibiotics are prescribed for strep throat because it is caused by bacteria.) Increase fluids particularly warm fluids like tea with honey. Some patients prefer iced beverages or popsicles. Salt water gargles: 1 tsp dissolved in a glass of warm water; gargle, do not swallow. Throat lozenges and/or sprays. Take ibuprofen (or aleve or aspirin) unless you have been told to not take NSAIDs in which case, take tylenol/acetaminophen for pain and fever. Seek follow-up care if your symptoms worsen or do not improve especially if you develop high fever (over 100.5 F), difficulty speaking or swallowing. Discussed plan with patient/parent. Answered patient's or parent's questions. Patient/parent expressed understanding and agreement with plan. Your discharge note was prepared with the use of electronic dictation. It may contain misspellings or wrong words that were not corrected on proofreading. If anything is unclear or you have questionsabout the discharge instructions, please call the clinic. Sore Throat: Care Instructions Your Care Instructions Infection by bacteria or a virus causes most sore throats. Cigarette smoke, dry air, air pollution,allergies, and yelling can also cause a sore throat. Sore throats can be painful and annoying. Fortunately, most sore throats go away on their own. If you have a bacterial infection, your doctor may prescribe antibiotics. Follow-up care is a slater part of your treatment and safety. Be sure to make and go to all appointments, and call your doctor if you are having problems. It's also a good idea to know your test resultsand keep a list of the medicines you take. How can you care for yourself at home? If your doctor prescribed antibiotics, take them as directed. Do not stop taking them just because you feel better. You need to take the full course of antibiotics. Gargle with warm salt water once an hour to help reduce swelling and relieve discomfort. Use 1 teaspoon of salt mixed in 1 cup of warm water. Take an vnvk-lzw-cujgcal pain medicine, such as acetaminophen (Tylenol), ibuprofen (Advil, Motrin),or naproxen (Aleve). Read and follow all instructions on the label. Be careful when taking pgax-zne-shjnvoz cold or flu medicines and Tylenol at the same time. Many ofthese medicines have acetaminophen, which is Tylenol. Read the labels to make sure that you are nottaking more than the recommended dose. Too much acetaminophen (Tylenol) can be harmful. Drink plenty of fluids. Fluids may help soothe an irritated throat. Hot fluids, such as tea or soup, may help decrease throat pain. Use udns-qnl-qosfnox throat lozenges to soothe pain. Regular cough drops or hard candy may also help. These should not be given to young children because of the risk of choking. Do not smoke or allow others to smoke around you. If you need help quitting, talk to your doctor about stop-smoking programs and medicines. These can increase your chances of quitting for good. Use a vaporizer or humidifier to add moisture to your bedroom. Follow the directions for cleaning the machine. When should you call for help? Call your doctor now or seek immediate medical care if: You have new or worse trouble swallowing. Your sore throat gets much worse on one side. Watch closely for changes in your health, and be sure to contact your doctor if you do not get better as expected. Where can you learn more? Log into your personal health record on [email or web address] [email or web address].[facility] and enter U420 in the Education box to learn more about Sore Throat: Care Instructions. Current as of: January 15, 2018 Content Version: 12.1 7386-6113 [employer]. Care instructions adapted under license by your healthcare professional. If you have questions about a medical condition or this instruction, always ask your healthcare professional. [employer] disclaims any warranty or liability for your use of this information. 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 Associated symptoms include eye itching, eye discharge and eye redness. Pertinent negatives include no fever, no decreased vision, no double vision, no photophobia, no nausea, no vomiting and no eye pain. The left eye is affected. 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 No pertinent past medical history. There is no problem list on file for this patient. SOCIAL HISTORY Social History Socioeconomic History Marital status: Single Spouse name: Not on file Number of children: Not on file Years of education: Not on file Highest education level: Not on file Social Needs Financial resource strain: Not on file Food insecurity - worry: Not on file Food insecurity - inability: Not on file Transportation needs - medical: Not on file Transportation needs - non-medical: Not on file Occupational History Not on file Tobacco Use Smoking status: Never Smoker Smokeless tobacco: Never Used Substance and Sexual Activity Alcohol use: Not on file Drug use: Not on file Sexual activity: Not on file Other Topics Concern Not on file Social History Narrative Not on file FAMILY HISTORY History reviewed. No pertinent family history. REVIEW OF SYSTEMS Review of Systems Constitutional: Negative for chills and fever. Eyes: Positive for discharge, redness and itching. Negative for double vision, photophobia, pain and visual disturbance. Gastrointestinal: Negative for nausea and vomiting. MEDICATIONS PRIOR TO VISIT Current Outpatient Medications on File Prior to Visit Medication Sig Dispense Refill norethindrone-ethinyl estradiol-iron (ESTROSTEP FE) 1-20(5)/1-30(7) /1mg-35mcg (9) Tab Take by mouth daily . No current facility-administered medications on file prior to visit. ALLERGIES/INTOLERANCES No Known Allergies OBJECTIVE BP (!) 131/92 Pulse (!) 102 Temp 98.4 F (36.9 C) (Tympanic) Wt 72.6 kg (160 lb) SpO2 96% Physical Exam Constitutional: She is oriented to person, place, and time. She appears well- developed and well-nourished. HENT: Head: Normocephalic and atraumatic. Right Ear: External ear normal. Left Ear: External ear normal. Nose: Nose normal. Mouth/Throat: Oropharynx is clear and moist. Eyes: Pupils are equal, round, and reactive to light. Left eye exhibits discharge (yellow crusty discharge). Left eye exhibits no chemosis and no exudate. No foreign body present in the left eye. Right conjunctiva is not injected. Left conjunctiva is injected. Left conjunctiva has no hemorrhage. Rig ht eye exhibits normal extraocular motion and no nystagmus. Left eye exhibits nystagmus. Left eye exhibits normal extraocular motion. Neck: Normal range of motion. Neck supple. Cardiovascular: Normal rate, regular rhythm and normal heart sounds. Pulmonary/Chest: Effort normal and breath sounds normal. No respiratory distress. She has no wheezes. Abdominal: Soft. She exhibits no distension. Musculoskeletal: Normal range of motion. She exhibits no edema. Lymphadenopathy: She has no cervical adenopathy. Neurological: She is alert and oriented to person, place, and time. Skin: Skin is warm and dry. Psychiatric: She has a normal mood and affect. Her behavior is normal. Nursing note and vitals reviewed. PROCEDURE Procedures Results No results found for this or any previous visit (from the past 168 hour(s)). ASSESSMENT/PLAN (expressed as patient instructions): SNOMED CT(R) 1. Acute bacterial conjunctivitis of left eye BACTERIAL CONJUNCTIVITIS trimethoprim-polymyxin b (POLYTRIM) 10,000 unit- 1 mg/mL Drop ophthalmic solution 2. Elevated blood pressure reading ELEVATED BLOOD PRESSURE Measure blood pressure -start using the eye drops in the affected eye. Take as directed. -do not touch the eye dropper to your eye -you may apply warm compresses to the eye for 15 minutes every 2-3 hours to help with itchiness anddryness -try to not rub or touch your eye as much as possible Follow up with PCP or your eye doctor if no improvement in your symptoms in 3-5 days or proceed to ED urgently if your symptoms worsen or new symptoms develop (you can call [employer] to aid in establishing care with a primary care provider if you do not have one) Return if symptoms worsen or fail to improve. ADDITIONAL CLINICAL COMMENTS ORDERS PLACED THIS VISIT Orders Placed This Encounter Procedures Measure blood pressure MEDICATION LIST AT END OF VISIT Current Outpatient Medications Medication Sig Dispense Refill norethindrone-ethinyl estradiol-iron (ESTROSTEP FE) 1-20(5)/1-30(7) /1mg-35mcg (9) Tab Take by mouth daily . trimethoprim-polymyxin b (POLYTRIM) 10,000 unit- 1 mg/mL Drop ophthalmic solution Administer 1 (one) drop to both eyes every 6 (six) hours for 7 days . 1 Bottle 0 No current facility-administered medications for this visit. in this encounter* Aydin Maldonado PA-C - 09/25/2018 12:11 PM EDT Subjective: Patient ID: Melida Kumar is a 23 y.o. female. Chief Complaint: This patient is a 23 y/o female who presents today c/o tonsils swollen and very tired. She reports onset last pm. She said it was hard to breath last night when she laid down due to tonsils being swollen. Patient is an [employer] student. She does not know of any particular illness she was exposed to. Shedenies throat pain. She denies any other symptoms. Sore Throat This is a new problem. The current episode started yesterday. The problem has been gradually worsening. There has been no fever. The pain is at a severity of 0/10. The patient is experiencing no pain. Associated symptoms include congestion (patient reports chronic congestion due to allergies but, states that is actually better at this time), a plugged ear sensation (chronic due to allergies per patient), swollen glands and trouble swallowing (mild. Still able to swallow solids and liquids). Pertinent negatives include no abdominal pain, coughing, diarrhea, drooling, ear discharge, ear pain, headaches, hoarse voice, neck pain, shortness of breath, stridor or vomiting. She has had no exposureto strep or mono. The following portions of the patient's history were reviewed and updated as appropriate: allergies, current medications, past family history, past medical history, past social history, past surgicalhistory and problem list. History reviewed. No pertinent past medical history. History reviewed. No pertinent surgical history. Family History Family history unknown: Yes Review of Systems Constitutional: Positive for fatigue. Negative for appetite change, chills, fever and unexpected weight change. HENT: Positive for congestion (patient reports chronic congestion due to allergies but, states thatis actually better at this time), sore throat and trouble swallowing (mild. Still able to swallow solids and liquids). Negative for drooling, ear discharge, ear pain, facial swelling, hoarse voice, mouth sores, postnasal drip, rhinorrhea, sinus pressure, sinus pain and sneezing. Eyes: Negative for discharge and redness. Respiratory: Negative for apnea, cough, choking, chest tightness, shortness of breath, wheezing andstridor. Gastrointestinal: Negative for abdominal pain, diarrhea and vomiting. Musculoskeletal: Negative for arthralgias, myalgias and neck pain. Allergic/Immunologic: Positive for environmental allergies. Negative for food allergies and immunocompromised state. Neurological: Negative for headaches. Objective: BP 124/82 (BP Location: Left arm, Patient Position: Sitting, BP Cuff Size: Adult) Pulse 81 Temp98.6 F (37 C) (Tympanic) Resp 16 Ht 5' Wt 70.8 kg (156 lb) LMP 09/25/2018 SpO2 96% BMI 30.47 kg/m Physical Exam Constitutional: She appears well-developed and well-nourished. HENT: Head: Normocephalic and atraumatic. Right Ear: Hearing, tympanic membrane, external ear and ear canal normal. Left Ear: Hearing, tympanic membrane, external ear and ear canal normal. Nose: No mucosal edema or rhinorrhea. Right sinus exhibits no maxillary sinus tenderness and no frontal sinus tenderness. Left sinus exhibits no maxillary sinus tenderness and no frontal sinus tenderness. Mouth/Throat: Uvula is midline. No uvula swelling. Posterior oropharyngeal edema and posterior oropharyngeal erythema present. No oropharyngeal exudate or tonsillar abscesses. Tonsils are 2+ on the right. Tonsils are 2+ on the left. No tonsillar exudate. Cardiovascular: Normal rate and regular rhythm. Pulmonary/Chest: Effort normal and breath sounds normal. Vitals reviewed. Assessment: Diagnoses and all orders for this visit: Tonsillitis - POC Strep A - Molecular - methylPREDNISolone (MEDROL DOSEPACK) 4 mg tablet; follow package directions . Fatigue, unspecified type - POC Infectious Mononucleosis Antibody - POC Strep A - Molecular Plan: Explained to patient POC tests today are negative. Illness consistent with viral etiology. Medrol Dose Pack prescribed due to enlarged tonsils and patient having difficulty breathing when she lies down. No problems while upright. Recommend that patient elevate when sleeping until illness has resolved. She would like a work note for today since she is feeling fatigued from not sleeping well last night. documented in this encounter* Nathan Forde DO - 11/19/2018 8:29 PM EDT [facility] Brief Evaluation Form Patient Transfer to ED without Admit to Urgent Care Date: 11/19/18 Time: 8:36 PM Name: Melida Kumar : 1995 [address] [place] [address] (home) Melida Kumar presented [facility] with Back Pain (back pain, pain in ovaries, started around 5pm today, happened last weekend and then went away, has noticed some yellow w blood when wiping the past couple days) . BP 124/79 (BP Location: Right arm, Patient Position: Sitting, BP Cuff Size: X- large Adult) Pulse 98 Temp 100.4 F (38 C) (Tympanic) Resp 16 Wt 73 kg (161 lb) SpO2 96% BMI 31.44 kg/m Allergies: no known allergies. Melida Kumar has a current medication list which includes the following prescription(s): methylprednisolone and norethindrone-ethinyl estradiol-iron. Melida Kumar has no past medical history on file. Exam: Melida Kumar was seen by Nathan Forde DO and is being transferred to [facility] Melida Kumar being transported via [employer] (Other). The primary encounter diagnosis was Left lower quadrant pain. A diagnosis of Acute left- sided low back pain with left-sided sciatica was also pertinent to this visit. Discussion Regarding Transfer: Patient having severe lower abdominal pain that is radiating to her back. She is also had nausea, vomiting and diarrhea. There is pain over the left suprapubic area as well as some pain right upper quadrant. I recommended she go immediately to the emergency departmentfor further evaluation. Discussed plan with patient. Answered patient's questions. Patient expressed understanding and agreement with plan. Transfer Center Called [facility] ED Called Additional Comments: Nathan Forde DO 11/19/18 *Transfer location subject to change based on patient condition during transport at EMS discretion. documented in this encounter* Daniel Nicholas MD - 12/05/2018 10:00 AM EDT POST OP NOTE Impression Reassuring Post Op visit 1 week status post L/S ovarian cyst removal for dermoid with intermittent torsion Plan Continue convalesence Resume normal activity as tolerated History 1 weeks status post L/S ovarian cyst removal for dermoid with intermittent torsion Complains of no concerns Feeling much improved Denies fever or chills Denies SOB or CP Denies flank pain Voiding well no dysuria, no frequency, no hematuria no vaginal bleeding + bowel movement Past Medical History: Diagnosis Date Ovarian cyst Past Surgical History: Procedure Laterality Date CYSTECTOMY OVARIAN LAPAROSCOPIC Left 11/25/2018 Procedure: LEFT LAPAROSCOPIC OVARIAN CYSTECTOMY; Surgeon: Daniel Nicholas MD; Location: [facility]; Service: OBGYN OB History No obstetric history on file. Physical Exam Gen Appears well, comfortable and in no apparent distress HEENT : Atraumatic, normocephalic Neck supple no mass or tenderness Chest clear Car Regular Abd soft nontender no mass no hepatosplenomegaly Incision minor bruising Ultrasound Coordinator NE Ext nontender Pathology Benign dermoid documented in this encounter* Nathan Forde DO - 01/01/2019 9:37 AM EDT PATIENT NAME: Melida Kumar [facility] [address] [place] [id number] : 1995 DATE OF VISIT: 01/01/2019 #: [id number] PROVIDER: Nathan Forde DO Chief Complaint Patient presents with Sore Throat 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 She denies any nausea or vomiting but does have a headache. Last time she had strep was sometime last year. 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 She did not take ibuprofen or any other treatment for the sore throat pain. Sore Throat This is a new problem. The current episode started yesterday. The problem has been unchanged. Neither side of throat is experiencing more pain than the other. There has been no fever. The pain is moderate. Associated symptoms include headaches and swollen glands. Pertinent negatives include no abdominal pain, congestion, coughing, diarrhea, ear pain, shortness of breath, stridor or vomiting. She has had no exposure to strep. She has tried nothing for the symptoms. MEDICAL ISSUES Past Medical History: Diagnosis Date Ovarian cyst Patient Active Problem List Diagnosis Ovarian torsion SOCIAL HISTORY Social History Socioeconomic History Marital status: Single Spouse name: Not on file Number of children: Not on file Years of education: Not on file Highest education level: Not on file Occupational History Not on file Social Needs Financial resource strain: Not on file Food insecurity: Worry: Not on file Inability: Not on file Transportation needs: Medical: Not on file Non-medical: Not on file Tobacco Use Smoking status: Never Smoker Smokeless tobacco: Never Used Substance and Sexual Activity Alcohol use: Yes Comment: occasional Drug use: Never Sexual activity: Not on file Lifestyle Physical activity: Days per week: Not on file Minutes per session: Not on file Stress: Not on file Relationships Social connections: Talks on phone: Not on file Gets together: Not on file Attends confucianist service: Not on file Active member of club or organization: Not on file Attends meetings of clubs or organizations: Not on file Relationship status: Not on file Other Topics Concern Not on file Social History Narrative Not on file FAMILY HISTORY Family History Adopted: Yes Family history unknown: Yes REVIEW OF SYSTEMS Review of Systems Constitutional: Negative for chills and fever. HENT: Positive for sore throat. Negative for congestion, ear pain, rhinorrhea and sinus pain. Respiratory: Negative for cough, shortness of breath and stridor. Cardiovascular: Negative for chest pain. Gastrointestinal: Negative for abdominal pain, diarrhea, nausea and vomiting. Neurological: Positive for headaches. Hematological: Positive for adenopathy. MEDICATIONS PRIOR TO VISIT Current Outpatient Medications on File Prior to Visit Medication Sig Dispense Refill norethindrone-ethinyl estradiol-iron (ESTROSTEP FE) 1-20(5)/1-30(7) /1mg-35mcg (9) Tab Take by mouth daily . ondansetron (ZOFRAN-ODT) 8 MG disintegrating tablet Dissolve 1 (one) tablet (8 mg total) on top of tongue every 8 (eight) hours as needed for nausea . 20 tablet 0 No current facility-administered medications on file prior to visit. ALLERGIES/INTOLERANCES No Known Allergies OBJECTIVE BP 122/74 (BP Location: Right arm, Patient Position: Sitting, BP Cuff Size: X- large Adult) Pulse 94 Temp 98.5 F (36.9 C) (Tympanic) Resp 16 Wt 72.6 kg (160 lb) LMP 12/29/2018 (Approximate) SpO2 97% BMI 31.25 kg/m Physical Exam Constitutional: She is oriented to person, place, and time. She appears well- developed and well-nourished. No distress. HENT: Head: Normocephalic and atraumatic. Right Ear: Tympanic membrane, external ear and ear canal normal. Left Ear: Tympanic membrane, external ear and ear canal normal. Nose: Nose normal. Mouth/Throat: Uvula is midline and mucous membranes are normal. Oropharyngeal exudate and posteriororopharyngeal erythema present. Eyes: Conjunctivae are normal. Right eye exhibits no discharge. Left eye exhibits no discharge. Neck: Normal range of motion. Neck supple. Cardiovascular: Normal rate, regular rhythm and normal heart sounds. No murmur heard. Pulmonary/Chest: Effort normal and breath sounds normal. No stridor. No respiratory distress. She has no wheezes. Lymphadenopathy: She has cervical adenopathy. Neurological: She is alert and oriented to person, place, and time. Skin: Skin is warm and dry. Psychiatric: She has a normal mood and affect. Nursing note and vitals reviewed. PROCEDURE Procedures Results Recent Results (from the past 168 hour(s)) POC Strep A - Molecular Collection Time: 01/01/19 9:55 AM Result Value Ref Range Strep A Screen Negative Negative ASSESSMENT/PLAN (expressed as patient instructions): 1. Viral pharyngitis 2. Sore throat POC Strep A - Molecular Return if symptoms worsen or fail to improve. ADDITIONAL CLINICAL COMMENTS Likely viral pharyngitis, strep test negative. Patient instructed to follow-up if symptoms worsen or do not improve. ORDERS PLACED THIS VISIT Orders Placed This Encounter Procedures POC Strep A - Molecular MEDICATION LIST AT END OF VISIT Current Outpatient Medications Medication Sig Dispense Refill norethindrone-ethinyl estradiol-iron (ESTROSTEP FE) 1-20(5)/1-30(7) /1mg-35mcg (9) Tab Take by mouth daily . ondansetron (ZOFRAN-ODT) 8 MG disintegrating tablet Dissolve 1 (one) tablet (8 mg total) on top of tongue every 8 (eight) hours as needed for nausea . 20 tablet 0 No current facility-administered medications for this visit. documented in this encounter* Kinza Jeff RN - 11/25/2018 5:39 PM EDT Discharge instructions given to patient with one script, she verbalized understanding denied needs or questions at this time documented in this encounter Assessments Diagnosis Acute bacterial conjunctivitis of left eye- Primary Elevated blood pressure reading Elevated blood pressure reading without diagnosis of hypertension Diagnosis Tonsillitis- Primary Acute tonsillitis Fatigue, unspecified type Diagnosis Left lower quadrant pain- Primary Abdominal pain, left lower quadrant Acute left-sided low back pain with left-sided sciatica Diagnosis Postop check- Primary Follow-up examination, following unspecified surgery Diagnosis Viral pharyngitis- Primary Acute pharyngitis Sore throat Acute pharyngitis Diagnosis Pelvic pain in female- Primary Unspecified symptom associated with female genital organs Teratoma of ovary, left Ovarian torsion Torsion of ovary, ovarian pedicle, or fallopian tube Left sided abdominal pain Abdominal pain, unspecified site Diagnosis Cystic teratoma of left ovary- Primary Advance Directives No Advanced Directives Records FoundDocuments on File Type Date Recorded Patient Director Pharmacy Services Expl anation Advance Directives and Living Will Documents on File Type Date Recorded Patient Director Pharmacy Services Expl anation Advance Directives and Livin g Will 11/19/2018 10:02 PM Documents on File Type Date Recorded Patient Director Pharmacy Services Expl anation Advance Directives and Livin g Will 11/25/2018 2:06 AM Documents on File Type Date Recorded Patient Director Pharmacy Services Expl anation Advance Directives and Livin g Will 11/19/2018 10:02 PM Summary Purpose Family History No Family History Records FoundNo Family History Records FoundNo Family History Records FoundNo Family History Records FoundNo Family History Records FoundNo Family History Records FoundNo Family History Records FoundNo Family History Records FoundNo Family History Records FoundNo Family History Records Found Hospital Course * Daniel Nicholas MD - 11/25/2018 8:13 AM EDT DISCHARGE SUMMARY Patient: Melida Kumar Date of : 1995 Site: [facility] Family Provider: Physician No Admit Date: 11/25/2018 Discharge Date/Time: 11/25/18 Afternoon Disposition: Home Clinical Summary Hospital Course: Melida Kumar is a 23 y.o. female patient of Physician Caren with a history of Dermoid cyst with torsion. Underwent laparoscopic ovarian cyst removal Discharge Diagnoses: Dermoid cyst Surgeries: 11/25/18 LEFT LAPAROSCOPIC OVARIAN CYSTECTOMY Consults: Procedures Hospitalize Patient To : Allergies: Patient has no known allergies. Discharge Diet: Condition: Good Discharge Medications: Current Discharge Medication List START taking these medications Details oxyCODONE-acetaminophen (PERCOCET) 5-325 mg per tablet Take 1 (one) tablet by mouth every 6 (six) hours as needed for pain . Qty: 16 tablet, Refills: 0 Associated Diagnoses: Pelvic pain in female CONTINUE these medications which have NOT CHANGED Details naproxen (EC NAPROSYN) 500 MG EC tablet Take 1 (one) tablet (500 mg total) by mouth 2 (two) times aday with meals . Qty: 60 tablet, Refills: 0 norethindrone-ethinyl estradiol-iron (ESTROSTEP FE) 1-20(5)/1-30(7) /1mg-35mcg (9) Tab Take by mouth daily . ondansetron (ZOFRAN-ODT) 8 MG disintegrating tablet Dissolve 1 (one) tablet (8 mg total) on top of tongue every 8 (eight) hours as needed for nausea . Qty: 20 tablet, Refills: 0 Physician(s) Family Provider: Physician Caren, Phone: None Address: [facility] Follow Up: No follow-up provider specified. Additional Information: follow up in 1 week Patient instructions, including activity, were given to the patient/family at discharge. Please seethe After Visit Summary in the electronic medical record for details. Time spent on discharge: > 30 minutes Completed by: Daniel Nicholas MD on 11/25/18, 8:13 AM documented in this encounter Reason for Referral Status Reason Specialty Diagnoses / Procedures Referred By Contact Referred To Contact Pending Review Gynecology Treva Moser MD [address] [facility] [address] [place] [address] [facility] Ultrasound Coordinator [facility] [address] [facility] [address] [place] [address] Specialty Diagnoses / Procedures Referred By Contac t Referred To Contact Diagnoses Dyspareunia, female Acute midline low back pain without sciatica Pelvic pain in female Procedures CONSULT TO ARTERIAL EMBALMER PELVIC PAIN OFFICE/OUTPATIENT [facility] 60-74 MINUTES Aeljandra Kline MD [address] [place] [address] Referral ID Status Reason Start Date Expiration Date Visits Requested Visits Authorized [id number] Authorized PCP Requested Referral Auto-Generate d Referral 2 01/05/2023 1 1 Specialty Diagnoses / Procedures Referred By Contac t Referred To Contact [facility] Diagnoses History of ovarian cyst Procedures PELVIC US WHI US PELVIC NONOBSTETRIC REAL-TIME IMAGE COMPLETE Alejandra Kline MD [address] [place] [address] [facility] [address] [place] [address] Referral ID Status Reason Start Date Expiration Date Visits Requested Visits Authorized [id number] Pending Review Auto-Generat ed Referral 2 01/05/2023 1 1 Specialty Diagnoses / Procedures Referred By Contac t Referred To Contact [facility] Diagnoses Dyspareunia, female High-tone pelvic floor dysfunction Procedures PT REHAB FOLLOW UP ORDER THERAPEUTIC EXERCISES RE, EA 15 MIN. Alissa Miller, PT [address] [place] [address] [facility] [address] [place] [address] Referral ID Status Reason Start Date Expiration Date V isits Requested Visits Authorized [id number] Closed PCP Requested Referral Auto-Generated Referral 04/09/2022 07/08/2022 1 1 Specialty Diagnoses / Procedures Referred By Contac t Referred To Contact Ent - Otolaryngology Diagnoses Tonsillar hypertrophy Procedures CONSULT TO ENT OFFICE/OUTPATIENT [facility] 60-74 MINUTES Aron Gaston DO [address] [place] [address] Referral ID Status Reason Start Date Expiration Date Visits Requested Visits Authorized [id number] Pending Review PCP Requested Referral 11/16/2022 02/14/2023 1 1 Specialty Diagnoses / Procedures Referred By Alen wilkins Referred To Contact Gastroenterology Diagnoses Chronic diarrhea Procedures CONSULT TO GASTROENTEROLOGY OFFICE/OUTPATIENT [facility] 60-74 MINUTES Aron Gaston DO [address] [place] [address] Referral ID Status Reason Start Date Expiration Date Visits Requested Visits Authorized [id number] Pending Review PCP Requested Referral 11/16/2022 02/14/2023 1 1 Discharge Instructions * Instructions* Treva Moser MD - 11/19/2018 Thank you for coming to an [facility] facility for your emergency care. Please review carefully any follow up instructions and information included with these discharge instructions. Appropriate followup is essential in your continued care after today's visit. If you hadany diagnostic studies ( Labs or Xray's, CAT scan, Ultrasound ) have your PCP (Primary Care Physician) review them with you since there may be results that require further follow up or investigation. If you do not have a primary care physician to arrange for a follow up examination as recommended during your emergency department visit, you may find a provider through the [facility] Physician Referral Service by calling [phone] ([phone]) or by visiting [email or web address]. If you were prescribed any medications, be sure to review and follow the prescriptions carefully. Return to your nearest emergency department immediately for any worsening symptoms, vomiting, fever, black or bloody bowel movements, or for any other concerns. The physician and staff of the Emergency Department would like to thank you for choosing our facility for your health care needs. Our goal is to provide exceptional service. You may be receiving a survey in the mail following your visit. Because your feedback is very important to us, we hope you will take the time to complete and return the survey. If for any reason, you feel that you cannot rateus VERY GOOD or 5 for the service you received today, please let us know prior to your discharge. We are here 24 hours a day, 7 days a week, and are always here for you. Dr. Treva Moser Board Certified Emergency Physician * Attachments The following attachments cannot be sent through Care Everywhere. * Ovarian Growths: Noncancerous (Setswana) documented in this encounter Medications Administered Section Inactive Administered Medications - up to 3 most recent administrations Medication Order MAR Action Action Date Dose Rate Site acetaminophen 1,000 mg tab(s) (TYLENOL) 1,000 mg, ORAL, ONCE, 1 dose, On Tue12/21/21 at 0930, If ordered PRN for pain, patient/guardian may elect to receive this medication for higher pain levels INSTEAD of the opioid, if preferred: Yes Given 12/21/2021 9:23 AM EDT 1,000 mg Oral keTORolac 60 mg injection (TORADOL) 60 mg, INTRAMUSCULAR, ONCE, 1 dose, On Tue12/21/21 at 0930, Ketorolac (Toradol) is indicated for the short-term (up to 5 days) management of moderately severe acute pain. Continuation of ketorolac (Toradol) beyond 5 days increases the risk of developing serious adverse events. Please verify the duration of therapy for ketorolac (Toradol)., If ordered PRN for pain, patient/guardian may elect to receive this medication for higher pain levels INSTEAD of the opioid, if preferred: Yes Given 12/21/2021 9:24 AM EDT 60 mg Buttocks, Left Health Concerns Infection Onset Date Last Indicated Resolved Time COVID-19 Rule-Out 12/21/2021 12/21/2021 Additional Source Comments Reason for Visit (unrecogniz ed section and content) Specialty Diagnoses / Procedures Referred By Contmarisa t Referred To Contact PHYSICAL THERAPY Diagnoses N94.10 (ICD-10-CM) - Dyspareunia, female N94.89 (ICD-10-CM) - High-tone pelvic floor dysfunction Procedures N94.10 (ICD-10-CM) - Dyspareunia, female N94.89 (ICD-10-CM) - High-tone pelvic floor dysfunction Jamia Castellanos MD [address] [place] [address] Pt [facility] [address] [place] [address] Referral ID Status Reason Start Date Expiration Date V isits Requested Visits Authorized [id number] Authorized 03/28/2022 03/27/2023 40 40 Reason Comments 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 and fatigue. Reason Comments Back Pain back pain, pain in o varies, started around 5pm today, happened last weekend and then went away, has noticed some yellow w blood when wiping the past couple days Reason Comments Post-op Pt here for PO check from Left Lap. Ovarian Cystectomy on 11/25. Pt c/o bruising around belly button incision. 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 Reason Comments Diarrhea Diarrhea x5 days wit h blood in stool x today, ER 5/3 Reason Comments Appointment Reason Comments Urinary Frequency Frequency, low back pain and bodyaches x 3 days Reason Comments Results Reason Comments Establish Care Throat Problem Patient states tonsi ls are swollen Specialty Diagnoses / Procedures Referred By Alen t Referred To Contact Family Medicine / FAMILY MEDICINE Diagnoses Encounter to establish care Establish care Procedures OFFICE/OUTPATIENT NEW MODERATE MDM 45-59 MINUTES 4C Aron Belcher DO [address] [place] [address] Aron Gaston, [address] [place] [address] Referral ID Status Reason Start Date Expiration Date Visits Re quested Visits Authorized [id number] Closed 11/16/2022 03/27/2023 1 1 INFORMATION SOURCE (unrecogn ized section and content) DATE CREATED AUTHOR AUTHOR'S ORGANIZ ATION 12/05/2018 [facility] DATE CREATED AUTHOR AUTHOR'S ORGANIZ ATION 01/01/2019 [facility] DATE CREATED AUTHOR AUTHOR'S ORGANIZ ATION 09/11/2019 [facility] DATE CREATED AUTHOR AUTHOR'S ORGANIZ ATION 03/18/2021 [facility] DATE CREATED AUTHOR AUTHOR'S ORGANIZ ATION 05/10/2021 [facility] DATE CREATED AUTHOR AUTHOR'S ORGANIZ ATION 06/10/2021 [facility] DATE CREATED AUTHOR AUTHOR'S ORGANIZ ATION 07/31/2021 [facility] DATE CREATED AUTHOR AUTHOR'S ORGANIZ ATION [facility]/11[facility]20[facility] DATE CREATED AUTHOR AUTHOR'S ORGANIZ ATION 11/26/2022 [facility] Daniel Nicholas MD - 11/25/2018 4:22 AM EDT H&P Notes (unrecognized sect ion and content) Gynecology History and Physical Patient Name: Melida Kumar Address: [address] [facility] [address] Date of : 1995 Today's Date: 11/25/2018 Today's Time: 4:23 AM Impression Pelvic mass consistent with dermoid cyst Ovarian torsion, intermittent. She is currently without pain Plan Laparoscopy with removal of dermoid cyst. Findings were reviewed with the patient. She currently is comfortable. Does not appear that the mass is currently acutely torsed. However, given the patients clinical presentation and imaging findings I believe that the most prudent course is to remove the cyst now rather than waiting for outpatient evaluation and scheduling. Risk of surgery were reviewed with patient and her partner including the risk of infection, bleeding, injury, medical complications. She understands that intention is to preserve the ovary and simply remove the cyst but that removal of the entire tube and ovary might be necessary. She also understands that the intention is to perform the procedure laparoscopically but that laparotomy might be necessary. All questions were answered. The OR team has been called and notified. History G0 presents with complaint of severe stabbing pelvic pain. Intense. Could not get comfortable. This has happened several times over the past week. She was seen previously and CT and ultrasound demonstrated a pelvic mass consistent with ovarian dermoid cyst. She was pending outpatient evaluation but again with sudden onset severe and sudden pain tonight bringing her to the ED. Ultrasound again demonstrated a cyst, no clear blood flow seen to the ovary. Pt was given IV fluid and narcotics and by the time of my evaluation the pain was dramatically improved and the patient comfortable Past Medical History: Diagnosis Date Ovarian cyst History reviewed. No pertinent surgical history. OB History No obstetric history on file. Social History Substance and Sexual Activity Sexual Activity Not on file Vitals: 11/25/18 0034 11/25/18 0255 BP: 130/76 126/82 BP Location: Right arm Patient Position: Sitting Pulse: (!) 116 83 Resp: 18 Temp: 99.1 F (37.3 C) TempSrc: Oral SpO2: 97% 95% Weight: 72.9 kg (160 lb 11.5 oz) Height: 5' Physical Exam Gen Appears well, comfortable and in no apparent distress HEENT : Atraumatic, normocephalic Neck supple no mass or tenderness Chest clear Car Regular Abd soft mildly tender no peritoneal signs No mass no hepatosplenomegaly Ultrasound Coordinator Not performed Ext nontender Admission on 11/25/2018 Component Date Value Ref Range Status Sodium 11/25/2018 139 135 - 145 mmol/L Final Potassium 11/25/2018 4.0 3.5 - 5.1 mmol/L Final Chloride 11/25/2018 100 98 - 108 mmol/L Final Bicarbonate 11/25/2018 26 21 - 32 mmol/L Final Anion Gap 11/25/2018 17 10 - 20 mmol/L Final Glucose 11/25/2018 109* 65 - 99 mg/dL Final BUN 11/25/2018 7* 8 - 25 mg/dL Final Creatinine 11/25/2018 0.84 0.40 - 1.10 mg/dL Final eGFR 11/25/2018 98 >=60 mL/min/1.73 m2 Final BUN/Creatinine Ratio 11/25/2018 8.3* 10.0 - 20.0 Final Calcium 11/25/2018 9.5 8.4 - 10.2 mg/dL Final Color, Urine 11/25/2018 Yellow Colorless, Yellow Final Clarity, Urine 11/25/2018 Hazy* Clear Final Specific Meredith 11/25/2018 1.029* 1.005 - 1.025 Final pH, Urine 11/25/2018 5.0 5.0 - 7.0 Final Protein, Urine 11/25/2018 30 * Negative mg/dL Final False positive results may occur in urines with large amounts of hemoglobin, pH greater than 8.0, contrast medium, or disinfectants including ammonium compounds. Glucose, Urine 11/25/2018 Negative Negative mg/dL Final Ketones, Urine 11/25/2018 Trace* Negative mg/dL Final Bilirubin, Urine 11/25/2018 Negative Negative Final Urobilinogen, Urine 11/25/2018 <2.0 <2.0 mg/dL Final Blood, Urine 11/25/2018 Small* Negative Final Nitrite, Urine 11/25/2018 Negative Negative Final Leukocyte Esterase, Urine 11/25/2018 Negative Negative Final WBCs, Urine 11/25/2018 2 0 - 5 /hpf Final RBCs, Urine 11/25/2018 13* 0 - 3 /hpf Final Bacteria, Urine 11/25/2018 Rare* None Seen /hpf Final Squamous Epithelial 11/25/2018 2 0 - 4 /hpf Final Hyaline Casts 11/25/2018 0-2 0 - 2 /lpf Final Mucus, Urine 11/25/2018 Many* None Seen, Rare /lpf Final WBC 11/25/2018 13.12* 4.50 - 11.00 K/mcL Final RBC 11/25/2018 4.76 4.00 - 5.20 M/mcL Final Hemoglobin 11/25/2018 14.9 12.0 - 16.0 g/dL Final Hematocrit 11/25/2018 43.8 36.0 - 46.0 % Final MCV 11/25/2018 92.0 80.0 - 100.0 fL Final MCH 11/25/2018 31.3 26.0 - 34.0 pg Final MCHC 11/25/2018 34.0 31.0 - 37.0 g/dL Final Platelets 11/25/2018 235 150 - 400 K/mcL Final RDW - CV 11/25/2018 13.0 11.6 - 14.8 % Final MPV 11/25/2018 10.3 9.0 - 15.5 fL Final Neutrophils 11/25/2018 73.6 % Final Lymphocytes 11/25/2018 21.6 % Final Monocytes 11/25/2018 3.7 % Final Eosinophils 11/25/2018 0.2 % Final Basophils 11/25/2018 0.3 % Final IG Percent 11/25/2018 0.60 % Final The IG parameter is the percentage of metamyelocytes, myelocytes, and promyelocytes. Neutrophils Abs 11/25/2018 9.65* 1.70 - 7.00 K/mcL Final Lymphocytes Abs 11/25/2018 2.84 0.90 - 4.00 K/mcL Final Monocytes Abs 11/25/2018 0.49 0.30 - 0.90 K/mcL Final Eosinophils Abs 11/25/2018 0.02 0.00 - 0.50 K/mcL Final Basophils Abs 11/25/2018 0.04 0.00 - 0.30 K/mcL Final IG Absolute 11/25/2018 0.08 0.00 - 0.30 K/mcL Final Nucleated RBC 11/25/2018 0.0 % Final Nucleated RBC Abs 11/25/2018 0.00 0.00 - 0.00 K/mcL Final Beta-hCG, Ur, Qual 11/25/2018 Negative Negative Final documented in this encounter Nataliia Colindres RN - 11/25/2018 9:38 AM EDTHNataliia vega RN - 11/25/2018 8:47 AM EDT Nursing Notes (unrecognized section and content) Dr. Hernandez here and aware pt. Tachycardic since admission to PACU, no further orders received. Dr. Nicholas here to talk to patient. documented in this encounter Rebeca Beltran RN - 11/25/2018 1:08 AM Janay Mcfarland CNP - 11/25/2018 12:56 AM Rebeca Rodriguez RN - 11/25/2018 12:51 AM Treva Sanchez MD - 11/19/2018 9:18 PM EDT ED Notes (unrecognized secti on and content) Ultrasound called in and on their way ED PROVIDER NOTE [facility] NAME: Melida Kumar AGE: 23 y.o. : 1995 VISIT DATE: 11/25/2018 CSN: [id number] PCP: Physician No Chief Complaint Patient presents with Abdominal Pain HPI 23-year-old female arrives to the ER today with severe left lower pelvic pain. She had similar pain but not as intense on the of this month where she was seen at the [facility] as she was sent there from the urgent care and was found to have a greater than 7 cm teratoma. She was medicated there and her pain resolved and she was discharged with referrals to OB. She reports that OB she was referred to cannot see her until December although she was not really worried about it at that point because she was pain-free. She states she tried other OBs and they could not get her into the beginning of next year. She notes that she all of a sudden started having pain again around 8:00. She initially thought that it was because she missed the dose of her naproxen however the pain just got worse. She took her naproxen at 9:00 and her pain has not gotten any better so she came to the ER. She was brought in by her brother. She admits that since the pain has come on she is developed nausea but no vomiting. She denies any recent diarrhea or constipation. She denied any urinary symptoms prior to today but this evening the last time she urinated it did burn slightly. She denies any lightheadedness, vertigo, headache, neck pain, chest pain, shortness of breath, midline back pain, flank pain, upper abdominal pain, bowel complaints, fevers or chills, extremity complaints or paresthesias. Past Medical History: Diagnosis Date Ovarian cyst History reviewed. No pertinent surgical history. Family History Adopted: Yes Family history unknown: Yes Social History Socioeconomic History Marital status: Single Spouse name: Not on file Number of children: Not on file Years of education: Not on file Highest education level: Not on file Occupational History Not on file Social Needs Financial resource strain: Not on file Food insecurity: Worry: Not on file Inability: Not on file Transportation needs: Medical: Not on file Non-medical: Not on file Tobacco Use Smoking status: Never Smoker Smokeless tobacco: Never Used Substance and Sexual Activity Alcohol use: Yes Comment: occasional Drug use: Never Sexual activity: Not on file Lifestyle Physical activity: Days per week: Not on file Minutes per session: Not on file Stress: Not on file Relationships Social connections: Talks on phone: Not on file Gets together: Not on file Attends confucianist service: Not on file Active member of club or organization: Not on file Attends meetings of clubs or organizations: Not on file Relationship status: Not on file Other Topics Concern Not on file Social History Narrative Not on file Previous Medications Medication Sig naproxen (EC NAPROSYN) 500 MG EC tablet Take 1 (one) tablet (500 mg total) by mouth 2 (two) times a day with meals . norethindrone-ethinyl estradiol-iron (ESTROSTEP FE) 1-20(5)/1-30(7) /1mg-35mcg (9) Tab Take by mouth daily . ondansetron (ZOFRAN-ODT) 8 MG disintegrating tablet Dissolve 1 (one) tablet (8 mg total) on top of tongue every 8 (eight) hours as needed for nausea . No Known Allergies Review of Systems Constitutional: No fevers Skin: No rash Eyes: No discharge ENMT: No hemoptysis Genitourinary: no obstructive symptoms Endocrine: no polyuria Neurologic: no new numbness Psychiatric: No hallucinations Hematologic/Lymphatic: No abnormal bruising Allergic/Immunologic: no urticaria Patient Vitals for the past 24 hrs: BP Temp Temp src Pulse Resp SpO2 Height Weight 11/25/18 0034 130/76 99.1 F (37.3 C) Oral (!) 116 18 97 % 5' 72.9 kg (160 lb 11.5 oz) Physical Exam Vitals signs and nursing note reviewed. Constitutional: General: She is not in acute distress. Appearance: Normal appearance. She is well-developed. She is not ill-appearing or toxic-appearing. HENT: Head: Normocephalic and atraumatic. Nose: Nose normal. Mouth/Throat: Pharynx: Uvula midline. Eyes: Conjunctiva/sclera: Conjunctivae normal. Pupils: Pupils are equal, round, and reactive to light. Neck: Musculoskeletal: Normal range of motion and neck supple. Thyroid: No thyromegaly. Trachea: Trachea normal. Cardiovascular: Rate and Rhythm: Normal rate and regular rhythm. Pulses: Normal pulses. Heart sounds: Normal heart sounds. Pulmonary: Effort: Pulmonary effort is normal. No respiratory distress. Breath sounds: Normal breath sounds. No decreased breath sounds, wheezing, rhonchi or rales. Chest: Chest wall: No tenderness. Abdominal: General: Bowel sounds are normal. There is no distension. Palpations: Abdomen is soft. Tenderness: There is no tenderness. Musculoskeletal: Normal range of motion. Lymphadenopathy: Head: Right side of head: No submental or submandibular adenopathy. Left side of head: No submental or submandibular adenopathy. Cervical: No cervical adenopathy. Skin: General: Skin is warm and dry. Findings: No erythema or rash. Neurological: Mental Status: She is alert and oriented to person, place, and time. Psychiatric: Speech: Speech normal. Behavior: Behavior normal. Thought Content: Thought content normal. Judgment: Judgment normal. Laboratory & Radiographic Imaging (if done): Results for orders placed or performed during the hospital encounter of 11/25/18 CBC Auto Differential Result Value Ref Range WBC 13.12 (H) 4.50 - 11.00 K/mcL RBC 4.76 4.00 - 5.20 M/mcL Hemoglobin 14.9 12.0 - 16.0 g/dL Hematocrit 43.8 36.0 - 46.0 % MCV 92.0 80.0 - 100.0 fL MCH 31.3 26.0 - 34.0 pg MCHC 34.0 31.0 - 37.0 g/dL Platelets 235 150 - 400 K/mcL RDW - CV 13.0 11.6 - 14.8 % MPV 10.3 9.0 - 15.5 fL Neutrophils 73.6 % Lymphocytes 21.6 % Monocytes 3.7 % Eosinophils 0.2 % Basophils 0.3 % IG Percent 0.60 % Neutrophils Abs 9.65 (H) 1.70 - 7.00 K/mcL Lymphocytes Abs 2.84 0.90 - 4.00 K/mcL Monocytes Abs 0.49 0.30 - 0.90 K/mcL Eosinophils Abs 0.02 0.00 - 0.50 K/mcL Basophils Abs 0.04 0.00 - 0.30 K/mcL IG Absolute 0.08 0.00 - 0.30 K/mcL Nucleated RBC 0.0 % Nucleated RBC Abs 0.00 0.00 - 0.00 K/mcL US Pelvic Transabdominal And Transvaginal With Color Flow (Results Pending) Procedures MDM 23-year-old female presents to the ER today with complaints of severe left pelvic pain. She recently had an ultrasound showing a greater than 7 cm teratoma. This pain was sudden in onset because of this I am concerned about an ovarian torsion. Because of this an ultrasound was ordered as well as medications for her pain plus an IV and blood work. She denies any concern of . At this time her care be taken over by the attending physician who will determine final impression disposition when her entire work-up is complete. She was ordered a dose of morphine and Zofran to help with her pain and to prevent worsening nausea. The patient has been informed that they may have pre-hypertension or hypertension based on a blood pressure reading in the Emergency Department. I recommend that the patient call the primary care provider listed on their discharge instructions or a physician of their choice as soon as possible to arrange follow-up in the next 4 weeks for further evaluation of possible pre-hypertension or hypertension. . Clinical Impression: 1. Pelvic pain in female 2. Teratoma of ovary, left ED Disposition None Follow-up Information Follow-up information has not been specified. Contact information for after-discharge care Follow-up information has not been specified. Janay Holden CNP 11/25/18 0135 Pt arrives with c/o left lower abdominal pain since 1999. Was diagnosed with an ovarian cyst on Tuesday. Stated had a fever on Tuesday. Is also on period currently. documented in this encounter ED PROVIDER NOTE [facility] EMERGENCY DEPARTMENT NAME: Melida Kumar AGE: 23 y.o. : 1995 VISIT DATE: 11/19/2018 CSN: [id number] PCP: Physician No Chief Complaint Patient presents with Abdominal Pain Pelvic Pain Back Pain 33-year-old female percents for evaluation of left lower abdominal pain which has been overall present for 4 hours now. Last meal was at 430. She denies fevers or chills. The patient went to urgent care for symptoms referred here for possible ovarian pathology. The patient states that she is nauseous but no vomiting. She did have one episode of diarrhea just loose stool earlier today. Denies any hematochezia. Patient denies any history of ovarian cysts or torsion in the past. Pain is 9/10, pt is tearful and holding llq. History reviewed. No pertinent past medical history. History reviewed. No pertinent surgical history. Family History Adopted: Yes Family history unknown: Yes Social History Socioeconomic History Marital status: Single Spouse name: Not on file Number of children: Not on file Years of education: Not on file Highest education level: Not on file Occupational History Not on file Social Needs Financial resource strain: Not on file Food insecurity: Worry: Not on file Inability: Not on file Transportation needs: Medical: Not on file Non-medical: Not on file Tobacco Use Smoking status: Never Smoker Smokeless tobacco: Never Used Substance and Sexual Activity Alcohol use: Yes Comment: occasional Drug use: Never Sexual activity: Not on file Lifestyle Physical activity: Days per week: Not on file Minutes per session: Not on file Stress: Not on file Relationships Social connections: Talks on phone: Not on file Gets together: Not on file Attends confucianist service: Not on file Active member of club or organization: Not on file Attends meetings of clubs or organizations: Not on file Relationship status: Not on file Other Topics Concern Not on file Social History Narrative Not on file Previous Medications Medication Sig methylPREDNISolone (MEDROL DOSEPACK) 4 mg tablet follow package directions . norethindrone-ethinyl estradiol-iron (ESTROSTEP FE) 1-20(5)/1-30(7) /1mg-35mcg (9) Tab Take by mouth daily . No Known Allergies Review of Systems Constitutional: Negative for activity change, appetite change, chills and fever. HENT: Negative for congestion, rhinorrhea, sneezing, sore throat and trouble swallowing. Eyes: Negative for discharge and visual disturbance. Respiratory: Negative for cough, choking and shortness of breath. Cardiovascular: Negative for chest pain, palpitations and leg swelling. Gastrointestinal: Positive for abdominal pain. Negative for constipation, diarrhea, nausea and vomiting. Genitourinary: Positive for pelvic pain. Negative for decreased urine volume, difficulty urinating, dyspareunia, flank pain, hematuria, vaginal bleeding, vaginal discharge and vaginal pain. Musculoskeletal: Positive for back pain. Skin: Negative for rash and wound. Neurological: Negative for weakness, light-headedness and headaches. Psychiatric/Behavioral: Negative for suicidal ideas. All other systems reviewed and are negative. Patient Vitals for the past 24 hrs: BP Temp Temp src Pulse SpO2 Height Weight 11/19/180 124/80 99.6 F (37.6 C) Oral 87 98 % 5' 72.6 kg (160 lb) Physical Exam Vitals signs and nursing note reviewed. Constitutional: General: She is not in acute distress. Appearance: She is well-developed and normal weight. She is not diaphoretic. HENT: Head: Normocephalic and atraumatic. Right Ear: External ear normal. Left Ear: External ear normal. Nose: Nose normal. Eyes: General: No scleral icterus. Right eye: No discharge. Left eye: No discharge. Pupils: Pupils are equal, round, and reactive to light. Neck: Musculoskeletal: Normal range of motion. Cardiovascular: Rate and Rhythm: Normal rate and regular rhythm. Heart sounds: Normal heart sounds. No murmur. No friction rub. No gallop. Pulmonary: Effort: Pulmonary effort is normal. No respiratory distress. Breath sounds: Normal breath sounds. No stridor. No wheezing or rales. Abdominal: General: Bowel sounds are normal. There is no distension. Palpations: Abdomen is soft. Tenderness: There is tenderness (left pelvic and LLQ, moderate, no rebound, no rovsing's). There is no guarding or rebound. Hernia: No hernia is present. Musculoskeletal: Normal range of motion. Skin: General: Skin is warm and dry. Capillary Refill: Capillary refill takes less than 2 seconds. Findings: No rash. Neurological: Mental Status: She is alert and oriented to person, place, and time. Motor: No abnormal muscle tone. Comments: KELLEY x4 spontaneously Laboratory & Radiographic Imaging (if done): Results for orders placed or performed during the hospital encounter of 11/19/18 POC Urinalysis Dipstick, Auto Result Value Ref Range Spec Grav, UA 1.020 1.005 - 1.025 pH, UA 7.0 5.0 - 7.0 Protein, UA Negative Negative mg/dL Glucose, UA Negative Negative mg/dL Ketones, UA Trace (A) Negative mg/dL Bilirubin, UA Negative Negative Urobilinogen, UA 0.2 <2.0 mg/dL Blood, UA Trace-lysed (A) Negative Nitrite, UA Negative Negative Leukocyte Esterase, UA Negative Negative POC , Urine Result Value Ref Range POC Preg Test, Ur Negative Negative CT Abdomen Pelvis Without Contrast (Results Pending) US Pelvic Transabdominal And Transvaginal With Color Flow (Results Pending) Procedures MDM Number of Diagnoses or Management Options Cystic teratoma of left ovary: new, needed workup Diagnosis management comments: Patient with significantly improved abdominal pain pelvic pain. She did have a mild leukocytosis and initially was concerned for possible stone versus torsion and situation of ovarian cyst. Patient's pain is completely resolved this time and a repeat abdominal exam is benign. Her work-up of imaging shows a 7 x 7 cm left adnexal teratoma. I discussed this with the patient. I spoke with Dr. Harman who is on-call for [facility], the hospitalist elected by the patient. She states the patient would be most appropriately followed up closely in the gynecologic office. I will give the patient a referral. She is given naproxen and Zofran for use at home as needed. I gave her careful emergent return precautions including significantly worsening pain, particularly if it does not improve after a period of time where she is vomiting or other concerns. Patient verbalized understanding has had her significant other with whom she was discharged. The patient has been informed that they may have pre-hypertension or hypertension based on a blood pressure reading in the Emergency Department. I recommend that the patient call the primary care provider listed on their discharge instructions or a physician of their choice as soon as possible to arrange follow-up in the next 4 weeks for further evaluation of possible pre-hypertension or hypertension. . Clinical Impression: No diagnosis found. ED Disposition None Follow-up Information Follow-up information has not been specified. Contact information for after-discharge care Follow-up information has not been specified. Treva Moser MD 11/19/18 0589 Patient to ED for c/o lower abdominal/pelvic pain. Patient also reports back p ain. Patient denies urinary frequency. Patient denies burning or painful urination. Patient A&O x4. documented in this encounter Brief Op Note - Daniel Nicholas MD - 11/25/2018 8:08 AM EDTED Attestation Note - Tano Bangura DO - 11/25/2018 1:49 AM EDT Miscellaneous Notes (unrecog nized section and content) Brief Post Operative Note Patient Name: Melida Kumar : 1995 (23 y.o.) Date of Service: 11/25/2018 [facility]: [id number] Procedure(s): LEFT LAPAROSCOPIC OVARIAN CYSTECTOMY Pre-Operative Diagnoses: * Left sided abdominal pain [R10.9] Post-Operative Diagnoses: * Dermoid cyst with torsion * Left sided abdominal pain [R10.9] Surgeon(s) and Role: * Daniel Nicholas MD - Primary Anesthesiologist: Soren Hernandez MD [employer] EMPLOYEE: Juan Manuel Fernandez CRNA Corporate Quality Assurance Manager: Audrey Quinteros RN Corporate Quality Assurance Manager Relief: Sushila Guardado RN Relief Scrub: [facility] Scrub Person: ST Joanne Scrub Person Assist: Aixa Russo RN Nurse Float: Eleanor D Syed, RN Operative findings: Large left ovary with torsion but not necrotic. Ovary untwisted and cyst removed. Ovary salvaged and appeared healthy Intra and immediate post-operative complications: none apparent Type of anesthesia used: General Estimated blood loss: less than 50 mL Estimated urine output: Refer to surgical log Specimen(s): ID Type Source Tests Collected by Time Destination A : LEFT OVARIAN CYST Tissue Ovary, Left TISSUE EXAM Daniel Nicholas MD 11/25/2018 0755 Implant(s): * No implants in log * Drain(s): [REMOVED] Urethral Catheter Other (Comment) 14 Fr. (Removed) Wound(s): Incision 11/25/18 Abdomen (Active) Incision 11/25/18 Perineum (Active) Daniel Nicholas MD 11/25/2018 8:08 AM I personally interviewed the patient. I personally examined the patient. I discussed the patient with STRAP BUCKLER/PA. I agree with the STRAP BUCKLER/PA treatment plan. I agree with the STRAP BUCKLER/PA plan of care. I agree with the STRAP BUCKLER/PA dispo as documented. The patient has been informed that they may have pre-hypertension or hypertension based on a blood pressure reading in the Emergency Department. I recommend that the patient call the primary care provider listed on their discharge instructions or a physician of their choice as soon as possible to arrange follow-up in the next 4 weeks for further evaluation of possible pre-hypertension or hypertension. . Tenderness to the left lower quadrant to palpation. Voluntary guarding. No rebound tenderness. No mid or upper abdominal tenderness. documented in this encounter Source Comments (unrecognize d section and content) In the event this informatio n is protected by the Federal Confidentiality of Alcohol and Drug Abuse Patient Records regulations: The Federal rules restrict any use of the information to criminally investigate or prosecute any alcohol or drug abuse patient.[facility] the event this information is protected by the Federal Confidentiality of Alcohol and Drug Abuse Patient Records regulations: The Federal rules restrict any use of the information to criminally investigate or prosecute any alcohol or drug abuse patient.[facility] the event this information is protected by the Federal Confidentiality of Alcohol and Drug Abuse Patient Records regulations: The Federal rules restrict any use of the information to criminally investigate or prosecute any alcohol or drug abuse patient.[facility] the event this information is protected by the Federal Confidentiality of Alcohol and Drug Abuse Patient Records regulations: The Federal rules restrict any use of the information to criminally investigate or prosecute any alcohol or drug abuse patient.[facility] Hospital[facility] the event this information is protected by the Federal Confidentiality of Alcohol and Drug Abuse Patient Records regulations: The Federal rules restrict any use of the information to criminally investigate or prosecute any alcohol or drug abuse patient.[facility] Hospital[facility] the event this information is protected by the Federal Confidentiality of Alcohol and Drug Abuse Patient Records regulations: The Federal rules restrict any use of the information to criminally investigate or prosecute any alcohol or drug abuse patient.[facility] HospitalIn the event this information is protected by the Federal Confidentiality of Alcohol and Drug Abuse Patient Records regulations: The Federal rules restrict any use of the information to criminally investigate or prosecute any alcohol or drug abuse patient.[facility] HospitalIn the event this information is protected by the Federal Confidentiality of Alcohol and Drug Abuse Patient Records regulations: The Federal rules restrict any use of the information to criminally investigate or prosecute any alcohol or drug abuse patient.[facility] HospitalIn the event this information is protected by the Federal Confidentiality of Alcohol and Drug Abuse Patient Records regulations: The Federal rules restrict any use of the information to criminally investigate or prosecute any alcohol or drug abuse patient.[facility] HospitalIn the event this information is protected by the Federal Confidentiality of Alcohol and Drug Abuse Patient Records regulations: The Federal rules restrict any use of the information to criminally investigate or prosecute any alcohol or drug abuse patient.[facility] HospitalIn the event this information is protected by the Federal Confidentiality of Alcohol and Drug Abuse Patient Records regulations: The Federal rules restrict any use of the information to criminally investigate or prosecute any alcohol or drug abuse patient.[facility] HospitalIn the event this information is protected by the Federal Confidentiality of Alcohol and Drug Abuse Patient Records regulations: The Federal rules restrict any use of the information to criminally investigate or prosecute any alcohol or drug abuse patient.[facility] HospitalIn the event this information is protected by the Federal Confidentiality of Alcohol and Drug Abuse Patient Records regulations: The Federal rules restrict any use of the information to criminally investigate or prosecute any alcohol or drug abuse patient.[facility] HospitalIn the event this information is protected by the Federal Confidentiality of Alcohol and Drug Abuse Patient Records regulations: The Federal rules restrict any use of the information to criminally investigate or prosecute any alcohol or drug abuse patient.[facility] HospitalIn the event this information is protected by the Federal Confidentiality of Alcohol and Drug Abuse Patient Records regulations: The Federal rules restrict any use of the information to criminally investigate or prosecute any alcohol or drug abuse patient.[facility] HospitalIn the event this information is protected by the Federal Confidentiality of Alcohol and Drug Abuse Patient Records regulations: The Federal rules restrict any use of the information to criminally investigate or prosecute any alcohol or drug abuse patient.[facility] the event this information is protected by the Federal Confidentiality of Alcohol and Drug Abuse Patient Records regulations: The Federal rules restrict any use of the information to criminally investigate or prosecute any alcohol or drug abuse patient.[facility] HospitalIn the event this information is protected by the Federal Confidentiality of Alcohol and Drug Abuse Patient Records regulations: The Federal rules restrict any use of the information to criminally investigate or prosecute any alcohol or drug abuse patient.[facility] FOR RECORDS PERTAINING TO PATIENTS WHO ARE OR HAVE BEEN ENROLLED IN A CHEMICAL DEPENDENCY/SUBSTANCEABUSE PROGRAM, SOME INFORMATION MAY BE OMITTED. This clinical summary was aggregated from multiple sources. Caution should be exercised in using it in the provision of clinical care. This summary normalizes information from multiple sources, and as a consequence, information in this document may materially change the coding, format and clinical context of patient data. In addition, data may be omitted in some cases. CLINICAL DECISIONS SHOULD BE BASED ON THE PRIMARY CLINICAL RECORDS. [facility] [employer] [facility]. provides no warranty or guarantee of the accuracy or completeness of information in this document.
[2023-05-23 10:12] LABS: Hematocrit 44.7 % (37-47); Hemoglobin 14.8 g/dL (12.0-15.0); Mean Corp Hgb Conc 33.1 g/dL (32-36); Mean Corpuscular Hgb 29.7 pg (27.0-32.0); Mean Corpuscular Volume 89.8 fL (81-99); Mean Platelet Vol. 11.2 fl (6.2-12.0); Platelet Count 227 K/mm3 (150-450); RBC Distribution Width SD 42.9 fl (35.1-43.9); Red Blood Count 4.98 M/mm3 (4.2-5.4); White Blood Count 7.3 K/mm3 (4.4-11.0)
[2023-05-23 10:14] LABS: Erythrocyte Sedimentation Rate 5 mm/hr (0-30)
[2023-05-23 10:27] LABS: Vitamin B12 737 pg/mL (211-911); Vitamin D,25 Hydroxy 21.4 ng/mL
[2023-05-23 10:40] LABS: AST(SGOT) 20 U/L (15-37); Alanine Aminotransfer ALT/SGPT 38 U/L (13-56); Alkaline Phosphatase 81 U/L (45-117); Anion Gap 3 (5-15); BUN 8 mg/dL (7-18); BUN/Creat Ratio 10.5 RATIO (10-20); Calcium,Total 9.4 mg/dL (8.5-10.1); Chloride 107 mmol/L (98-107); Cholesterol 214 mg/dL (200); Creatinine, Serum 0.76 mg/dL (0.55-1.02); EST Glomerular Filtration Rate 96 mL/min (>60); Est Glom Filt Rate - Afr Amer 116 mL/min (>60); Estradiol 49.6 pg/mL; Follicle Stimulating Hormone 6.8 mIU/mL; Free T3 3.1 pg/mL (2.18-3.98); Globulin 3.9 g/dL (2.2-4.2); Glucose 92 mg/dL (74-106); High Density Lipoprotein 54 mg/dL; Luteinizing Hormone 10.8 mIU/mL; Potassium 3.9 mmol/L (3.5-5.1); Protein, Total 7.9 g/dL (6.4-8.2); Sodium Level 138 mmol/L (136-145); T4 Free Direct 1.01 ng/dL (0.76-1.46); Thyroid Stim Hormone (TSH) 1.44 uIU/mL (0.358-3.74); Triglycerides 168 mg/dL; Very Low Density Lipoprotein 34 mg/dL (5-40)
[2023-05-30 19:07] LABS: Cortisol, Free 24Ur 25 ug/24 hr (6-42); Cortisol, Urinary Free 10 ug/L (Undefined)
== END | disposition home or self-care (01) ==
LOC: MFPLAB 08:42
PROVIDERS: Family Medicine; Visit Provider Family Medicine
DX: R53.83 Other fatigue (principal); N92.6 Irregular menstruation, unspecified; Z13.220 Encounter for screening for lipoid disorders
CPT/HCPCS: 36415; 80053; 80061; 82306; 82530; 82607; 82627; 82670; 83001; 83002; 84403; 84439; 84443; 84481; 85027; 85652; 82626